=== PATIENT | male | born 1975 | race Caucasian/White ===

== ENCOUNTER 2020-04-05 07:27 | Outpatient (REF) | payer OTHER, SELFPAY | END 2020-04-05 07:28 | disposition home or self-care (01) | LOC: HO.LAB 07:27 | PROVIDERS: Visit Provider Internal Medicine | DX: Z20.822 Contact with and (suspected) exposure to COVID-19 (principal) | CPT/HCPCS: 36415; C9803; U0003; U0005 ==

== ENCOUNTER 2020-11-03 06:54 | Outpatient (REF) | payer OTHER, SELFPAY ==
[2020-11-03 11:20] LABS: MANUAL DIFF FLAG NO
[2020-11-03 11:36] LABS: Basophils Percent Auto 0.4 % (0-2); Eosinophils Absolute Auto 0.3 X10*3/uL (0.0-0.4); Eosinophils Percent Auto 3.6 % (0-4); Hemoglobin 14.3 g/dl (14.0-18.0); Imm Gran Abs Auto 0.04 X10*3/uL (0.00-0.03); Imm Gran Pct Auto 0.4 % (0.0-0.4); Lymphocytes Absolute Auto 2.5 X10*3/uL (1.2-4.9); Lymphocytes Percent Auto 26.7 % (20-40); Mean Corpuscular HGB Conc 32.5 g/dl (31.0-36.0); Mean Corpuscular Hemoglobin 29.1 pg (27.0-33.0); Mean Corpuscular Volume 89.6 fL (80-98); Mean Platelet Volume 9.8 fL (9.4-12.4); Monocytes Absolute Auto 0.6 X10*3/uL (0.1-1.2); Monocytes Percent Auto 6.8 % (2-11); Neutrophils Absolute Auto 5.8 X10*3/uL (2.0-8.3); Neutrophils Percent Auto 62.1 % (45-73); Platelet Count 334 X10*3/uL (160-400); Red Blood Count 4.91 X10*6/uL (4.60-5.80); Red Cell Distribution Width 12.7 % (11.0-16.0); White Blood Count 9.4 X10*3/uL (4.8-10.8)
[2020-11-03 11:44] LABS: Alanine Aminotransferase 22 U/L (0-40); Alkaline Phosphatase 69 U/L (39-117); Anion Gap 12 (12-20); Aspartate Amino Transferase 12 U/L (5-37); Bilirubin Total 0.4 mg/dL (0.0-1.0); Blood Urea Nitrogen 14 mg/dL (9-16); Calcium 9.3 mg/dL (8.4-10.2); Carbon Dioxide 28 mmol/L (22-29); Chloride 102 mmol/L (96-108); Cholesterol 198 mg/dL; Estimated Glomerular Filt Rate > 60; Glucose Fasting 121 mg/dL (60-99); HDL Cholesterol 39 mg/dL; LDL Cholesterol Calculated 134 mg/dl; Potassium 4.5 mmol/L (3.3-5.1); Sodium 137 mmol/L (135-145); Total Protein 7.2 g/dL (6.5-8.0); Triglycerides 128 mg/dL
== END 2020-11-03 06:55 | disposition home or self-care (01) ==
LOC: HO.HMGCLDS 06:54
PROVIDERS: PCP Internal Medicine; Visit Provider Internal Medicine
DX: Z00.00 Encounter for general adult medical examination without abnormal findings (principal); E11.9 Type 2 diabetes mellitus without complications
CPT/HCPCS: 36415; 80053; 80061; 85025

== ENCOUNTER 2021-11-21 06:26 | Outpatient (REF) | payer OTHER, SELFPAY ==
[2021-11-21 11:17] LABS: MANUAL DIFF FLAG NO
[2021-11-21 11:40] LABS: Hematocrit 45.5 % (42.0-52.0); Mean Corpuscular Hemoglobin 29.4 pg (27.0-33.0); Mean Corpuscular Volume 89.2 fL (80.0-98.0); White Blood Count 9.9 X10*3/uL (4.8-10.8)
[2021-11-21 11:41] LABS: Basophils Absolute Auto 0.1 X10*3/uL (0.0-0.2); Basophils Percent Auto 0.6 % (0-2); Eosinophils Absolute Auto 0.3 X10*3/uL (0.0-0.4); Eosinophils Percent Auto 2.8 % (0-4); Imm Gran Abs Auto 0.04 X10*3/uL (0.00-0.03); Imm Gran Pct Auto 0.4 % (0.0-0.4); Lymphocytes Absolute Auto 3.1 X10*3/uL (1.2-4.9); Lymphocytes Percent Auto 31.1 % (20-40); Mean Platelet Volume 9.6 fL (9.4-12.4); Monocytes Absolute Auto 0.8 X10*3/uL (0.1-1.2); Neutrophils Absolute Auto 5.7 x10*3/uL (2.0-8.3); Neutrophils Percent Auto 57.1 % (45-73); Platelet Count 346 X10*3/uL (160-400); Red Cell Distribution Width 12.9 % (11.0-16.0)
[2021-11-21 12:01] LABS: Alanine Aminotransferase 27 U/L (0-40); Albumin Level 4.1 g/dL (3.5-5.0); Alkaline Phosphatase 75 U/L (39-117); Anion Gap 16 (12-20); Aspartate Amino Transferase 13 U/L (5-37); Bilirubin Total 0.6 mg/dL (0.0-1.0); Blood Urea Nitrogen 18 mg/dL (9-16); Calcium 9.3 mg/dL (8.4-10.2); Carbon Dioxide 26 mmol/L (22-29); Chloride 100 mmol/L (96-108); Cholesterol 206 mg/dL; Estimated Glomerular Filt Rate > 60; Glucose Fasting 111 mg/dL (60-99); HDL Cholesterol 37 mg/dL; LDL Cholesterol Calculated 143 mg/dl; Potassium 4.5 mmol/L (3.3-5.1); Sodium 137 mmol/L (135-145); Total Protein 7.3 g/dL (6.5-8.0); Triglycerides 133 mg/dL
[2021-11-21 12:05] LABS: Thyroid Stimulating Hormone 2.34 uIU/mL (0.32-4.0)
== END 2021-11-21 06:27 | disposition home or self-care (01) ==
LOC: HO.HMGCLDS 06:26
PROVIDERS: PCP Internal Medicine; Visit Provider Internal Medicine
DX: I10 Essential (primary) hypertension (principal); E78.5 Hyperlipidemia, unspecified; E03.9 Hypothyroidism, unspecified; Z13.0 Encounter for screening for diseases of the blood and blood-forming organs and certain disorders involving the immune mechanism
CPT/HCPCS: 36415; 80053; 80061; 84443; 85025

== ENCOUNTER 2022-11-15 07:52 | Outpatient (REF) | payer OTHER, SELFPAY ==
[2022-11-15 11:55] LABS: MANUAL DIFF FLAG NO
[2022-11-15 12:04] LABS: Basophils Absolute Auto 0.1 X10*3/uL (0.0-0.2); Basophils Percent Auto 0.4 % (0-2); Eosinophils Absolute Auto 0.5 X10*3/uL (0.0-0.4); Hematocrit 43.5 % (42.0-52.0); Hemoglobin 14.2 g/dl (14.0-18.0); Imm Gran Abs Auto 0.07 X10*3/uL (0.00-0.03); Imm Gran Pct Auto 0.6 % (0.0-0.4); Lymphocytes Absolute Auto 2.8 X10*3/uL (1.2-4.9); Lymphocytes Percent Auto 25.2 % (20-40); Mean Corpuscular HGB Conc 32.6 g/dl (31.0-36.0); Mean Corpuscular Hemoglobin 29.5 pg (27.0-33.0); Mean Corpuscular Volume 90.2 fL (80.0-98.0); Mean Platelet Volume 9.5 fL (9.4-12.4); Monocytes Absolute Auto 0.7 X10*3/uL (0.1-1.2); Monocytes Percent Auto 6.1 % (2-11); Neutrophils Absolute Auto 7.2 x10*3/uL (2.0-8.3); Neutrophils Percent Auto 63.7 % (45-73); Platelet Count 361 X10*3/uL (160-400); Red Blood Count 4.82 X10*6/uL (4.60-5.80); Red Cell Distribution Width 12.8 % (11.0-16.0); White Blood Count 11.3 X10*3/uL (4.8-10.8)
[2022-11-15 12:29] LABS: Alanine Aminotransferase 21 U/L (0-40); Albumin Level 3.9 g/dL (3.5-5.0); Alkaline Phosphatase 67 U/L (39-117); Anion Gap 11 (12-20); Aspartate Amino Transferase 16 U/L (5-37); Bilirubin Total 0.3 mg/dL (0.0-1.0); Blood Urea Nitrogen 15 mg/dL (9-16); Calcium 9.1 mg/dL (8.4-10.2); Carbon Dioxide 23 mmol/L (22-29); Chloride 106 mmol/L (96-108); Cholesterol 187 mg/dL (<200); Estimated Glomerular Filt Rate > 60; Glucose Fasting 121 mg/dL (60-99); HDL Cholesterol 43 mg/dL (>40); LDL Cholesterol Calculated 120 mg/dL (<100); Potassium 3.9 mmol/L (3.3-5.1); Sodium 136 mmol/L (135-145); Total Protein 7.3 g/dL (6.5-8.0); Triglycerides 121 mg/dL (<150)
[2022-11-15 12:46] LABS: Thyroid Stimulating Hormone 3.08 uIU/mL (0.32-4.0)
== END 2022-11-15 07:53 | disposition home or self-care (01) ==
LOC: HO.HMGCLDS 07:52
PROVIDERS: PCP Internal Medicine; Visit Provider Internal Medicine
DX: E78.5 Hyperlipidemia, unspecified (principal); D64.9 Anemia, unspecified; E03.9 Hypothyroidism, unspecified; N28.9 Disorder of kidney and ureter, unspecified
CPT/HCPCS: 36415; 80053; 80061; 84443; 85025

== ENCOUNTER 2023-01-23 13:57 | Outpatient (AMB) | payer OTHER, SELFPAY ==
--- NOTE | 2023-01-23 14:09 | MHC.PC.OV ---
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 Accompanied by: Self / Same As Patient Allergies No Known Allergies Allergy (Verified 01/23/23 14:09) Medication List - Last Reconciled 01/24/23 by Ace Gomes MD hydrochlorothiazide 25 mg PO QAM lisinopril 40 mg PO DAILY Tobacco use date assessed: 01/23/23 Dental Screening Dental Screen Date: 01/23/23 Did you have a dental visit in the last 12 months?: Yes Did you have a dental problem in the last 6 months where you did not have access to dental care?: No Was dental information given to patient?: Patient has dentist HPI PE HPI Details HTN on Rx; compliant [facility] Medical History Morbid obesity Surgical History History of ankle surgery Family History Mother Alive and well Housing: House Alcohol intake: never Patient Tobacco Use Status: Never used Tobacco e-Cigarette/Vaping Use: Never Used Second Hand Smoke Exposure: No service: No Current occupational status: disabled Cognitive needs: No Hearing needs: No Vision needs: Yes Questionnaire PHQ-9 Over the last 2 weeks, how often have you been bothered by any of the following problems? 1. Little interest or pleasure in doing things: not at all 2. Feeling down, depressed, or hopeless: not at all 3. Trouble falling or staying asleep, or sleeping too much: not at all 4. Feeling tired or having little energy: not at all 5. Poor appetite or overeating: not at all 6. Feeling bad about yourself - or that you are a failure or have let yourself or your family down: not at all 7. Trouble concentrating on things, such as reading the newspaper or watching television: not at all 8. Moving or speaking so slowly that other people could have noticed. Or the opposite - being so fidgety or restless that you have been moving around a lot more than usual: not at all 9. Thoughts that you would be better off or of hurting yourself in some way: not at all Total score: 0 Depression Screening Interpretation: Negative Depression Screening Done: Yes 29332 - PHQ-9 Billing: Yes Source: Developed by Drs. Ashish Jimenez, Ada Hawthorne, Hernando Alexandre and colleagues, with an educational delisa from [employer]. Thrive Questionnaire Date Thrive assessed: 01/23/23 I am a: Patient What is your living situation today?: I have a steady place to live Within the past 12 months, did the food you bought not last and you didn't have the money to get more?: Never true Within the past 12 months, did you worry whether your food would run out before you got money to buy more?: Never true Do you have trouble paying for medicines?: No Do you have trouble getting transportation to medical appointments?: No Do you have trouble paying your heating and electricity bill?: No Do you have trouble taking care of your child, family member or friend?: No Do you have trouble with day-to-day activities such as bathing, preparing meals, shopping, managing finances, etc.?: No Are you currently unemployed and looking for a job?: No Are you interested in more education?: No Please select the resources that you would like help with: None AUDIT C Alcohol Use Questionnaire (AUDIT-C) 1. How often do you have a drink containing alcohol?: Never 3. How often do you have six or more drinks on one occasion?: Never Total Score: 0 Score Reviewed/Action Taken: Yes RADHA-7 AMB Questionnaire RADHA-7 Date RADHA - 7 assessed: 01/23/23 Feeling nervous, anxious, or on edge: 0 = Not at all Not being able to stop or control worryin = Not at all Worrying too much about different things: 0 = Not at all Trouble relaxin = Not at all Being so restless that it is hard to sit still: 0 = Not at all Becoming easily annoyed or irritable: 0 = Not at all Feeling afraid as if something awful might happen: 0 = Not at all Total RADHA-7 score (0-4 normal; 5-9 mild; 10-14 moderate; 15-21 severe): 0 Source: Developed by Drs. Ashish Jimenez, Ada Hawthorne, Hernando Alexandre and colleagues, with an educational delisa from [employer]. RADHA-7 Assessment Billing RADHA-7 Assessment Tool: RADHA-7 Assessment 74489 Review of Systems Const Denies chills, Denies fatigue, Denies headache(s) and Denies weight loss Eyes Denies change in vision, Denies diplopia and Denies eye pain ENT Denies vertigo, Denies dizziness, Denies headache(s) and Denies nasal discharge Card Denies chest pain, Denies rapid heart rate and Denies dyspnea on exertion Resp Denies chest congestion, Denies cough, Denies pain with cough and Denies dyspnea on exertion GI Denies abdominal pain, Denies hematochezia and Denies change in bowel habits Musc Denies myalgias, Denies arthralgias and Denies joint swelling Skin/Breast Denies lesions and Denies unusual bruising Neuro Denies vertigo, Denies dizziness, Denies headache(s) and Denies focal weakness Endo Denies fatigue Physical exam (Primary Care) Vital Signs: Last Vital Signs Pulse 105 H 01/23/23 14:10 BP 170/98 H 01/23/23 14:10 Pulse Ox 99 01/23/23 14:10 Oxygen Delivery Method Room Air 01/23/23 14:10 BMI result Body Mass Index 49.2 morbid obesity BMI Assessment/Plan discussion: High BMI High, discussed plan: lifestyle, weight reduction, dietary and physical activity Tobacco/Smoking Status: Tobacco use Status Tobacco use date assessed 01/23/23 01/23/23 14:14 Patient Tobacco Use Status Never used Tobacco 01/23/23 14:14 e-Cigarette/Vaping Use Never Used 01/23/23 14:14 PHQ-9: PHQ-9 Score PHQ-9: Total score 0 01/23/23 14:14 Depression Screening Interpretation: Negative Thrive Assessment: Date of Thrive Assessment Date Thrive assessed 01/23/23 01/23/23 14:14 Const General: cooperative, healthy appearing and no acute distress Orientation/consciousness: oriented to person, oriented to place and oriented to time HENMT Head: Yes normal to inspection, Yes normocephalic and Yes atraumatic Mouth: Normal oral and palatal mucosa present and tongue normal Throat: Yes posterior oropharynx normal and Yes uvula midline Eyes General: appearance normal, both eyes and all related structures Neck Neck: Yes normal visual inspection, Yes full ROM and Yes no lymphadenopathy Thyroid: Thyroid normal Carotids: normal carotid upstroke Chest Chest palpation & inspection: normal inspection of the chest Resp Effort & Inspection: normal respiratory effort and able to speak in complete sentences Auscultation: clear to auscultation bilaterally Cardio Jugular venous distension: no JVD Palpation: normal PMI Rate: regular rate Rhythm: regular rhythm Heart sounds: S1 normal heart sound present and S2 normal heart sound present GI Inspection: Yes normal to inspection Palpation (GI): Soft to palpation and No hepatosplenomegaly present Auscultation: normal bowel sounds General: Yes no CVA tenderness Back/Spine/Pelvis Back: no CVA tenderness Skin General skin exam: no rashes or lesions noted Neuro General: oriented to person, oriented to place and oriented to time Extrem General: Yes normal to inspection and Yes full ROM Assessment and Plan Assessment & Plan (1) Hypertension: Code(s): I10 - Essential (primary) hypertension Plan: stable; same rx (2) Physical exam: Code(s): Z00.00 - Encounter for general adult medical examination without abnormal findings Plan: labs (3) Morbid obesity: Code(s): E66.01 - Morbid (severe) obesity due to excess calories Plan: as above Medications: New lisinopril 40 mg PO DAILY 90 tabs 3RF Discontinued lisinopril Discontinued Reason: Doctor's Order 20 mg PO DAILY 90 tabs 8RF Coding Level of Care Code Est Pt Prev Care 40-64y(50400) Diagnoses Hypertension I10 Physical exam Z00.00 Morbid obesity E66.01 Additional Codes RADHA-7 Assessment Billing - RADHA-7 Assessment Tool: RADHA-7 Assessment 58728 ([id number])
[2023-01-23 14:10] VITALS: BP 170/98; PULSE 105; O2SAT 99; BMI 49.2
== END 2023-01-23 14:38 | disposition home or self-care (01) ==
PROVIDERS: PCP Internal Medicine; Visit Provider Internal Medicine
DX: Z00.00 Encounter for general adult medical examination without abnormal findings (principal); I10 Essential (primary) hypertension; E66.01 Morbid (severe) obesity due to excess calories; Z68.42 Body mass index [BMI] 45.0-49.9, adult
CPT/HCPCS: 99396

== ENCOUNTER 2023-04-24 06:24 | Outpatient (REF) | payer OTHER, SELFPAY ==
[2023-04-24 11:18] LABS: MANUAL DIFF FLAG NO
[2023-04-24 11:32] LABS: Basophils Absolute Auto 0.1 X10*3/uL (0.0-0.2); Basophils Percent Auto 0.6 % (0-2); Eosinophils Absolute Auto 0.6 X10*3/uL (0.0-0.4); Eosinophils Percent Auto 5.5 % (0-4); Hematocrit 43.3 % (42.0-52.0); Hemoglobin 14.2 g/dl (14.0-18.0); Imm Gran Abs Auto 0.06 X10*3/uL (0.00-0.03); Imm Gran Pct Auto 0.6 % (0.0-0.4); Lymphocytes Absolute Auto 2.2 X10*3/uL (1.2-4.9); Lymphocytes Percent Auto 21.3 % (20-40); Mean Corpuscular HGB Conc 32.8 g/dl (31.0-36.0); Mean Corpuscular Hemoglobin 29.3 pg (27.0-33.0); Mean Corpuscular Volume 89.3 fL (80.0-98.0); Mean Platelet Volume 9.5 fL (9.4-12.4); Monocytes Absolute Auto 0.7 X10*3/uL (0.1-1.2); Monocytes Percent Auto 6.9 % (2-11); Neutrophils Absolute Auto 6.7 x10*3/uL (2.0-8.3); Neutrophils Percent Auto 65.1 % (45-73); Platelet Count 352 X10*3/uL (160-400); Red Blood Count 4.85 X10*6/uL (4.60-5.80); Red Cell Distribution Width 13.2 % (11.0-16.0); White Blood Count 10.3 X10*3/uL (4.8-10.8)
[2023-04-24 11:56] LABS: Alanine Aminotransferase 22 U/L (0-40); Albumin Level 3.8 g/dL (3.5-5.0); Alkaline Phosphatase 71 U/L (39-117); Anion Gap 15 (12-20); Aspartate Amino Transferase 12 U/L (5-37); Bilirubin Total 0.3 mg/dL (0.0-1.0); Blood Urea Nitrogen 20 mg/dL (9-16); Calcium 8.9 mg/dL (8.4-10.2); Carbon Dioxide 23 mmol/L (22-29); Chloride 103 mmol/L (96-108); Cholesterol 200 mg/dL (<200); Estimated Glomerular Filt Rate > 60; Glucose Fasting 136 mg/dL (60-99); HDL Cholesterol 42 mg/dL (>40); LDL Cholesterol Calculated 126 mg/dL (<100); Potassium 4.4 mmol/L (3.3-5.1); Sodium 137 mmol/L (135-145); Total Protein 7.4 g/dL (6.5-8.0); Triglycerides 164 mg/dL (<150)
== END 2023-04-24 06:25 | disposition home or self-care (01) ==
LOC: HO.HMGCLDS 06:24
PROVIDERS: PCP Internal Medicine; Visit Provider Internal Medicine
DX: E78.5 Hyperlipidemia, unspecified (principal); D64.9 Anemia, unspecified; N28.9 Disorder of kidney and ureter, unspecified
CPT/HCPCS: 36415; 80053; 80061; 85025

== ENCOUNTER 2023-04-25 09:59 | Outpatient (AMB) | payer OTHER, SELFPAY ==
[2023-04-25 10:01] VITALS: BP 140/84; PULSE 96; O2SAT 100; BMI 50.1
--- NOTE | 2023-04-25 10:01 | A.OFFPC_ITS ---
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 Payroll And Benefits Manager: Not Required per policy Accompanied by: Self / Same As Patient Allergies No Known Allergies Allergy (Verified 04/25/23 10:01) Medication List - Last Reconciled 04/25/23 by Ace Gomes MD hydrochlorothiazide 25 mg PO QAM lisinopril 40 mg PO DAILY Tobacco use date assessed: 04/25/23 Dental Screening Dental Screen Date: 04/25/23 Did you have a dental visit in the last 12 months?: Yes Did you have a dental problem in the last 6 months where you did not have access to dental care?: No Was dental information given to patient?: Patient has dentist HPI 3 month f/u HPI Details HTN on rx; doing well; compliant [facility] Medical History Morbid obesity Surgical History History of ankle surgery Family History Mother Alive and well Social History Housing: House Alcohol intake: never Patient Tobacco Use Status: Never used Tobacco e-Cigarette/Vaping Use: Never Used Second Hand Smoke Exposure: No service: No Current occupational status: disabled Cognitive needs: No Hearing needs: No Vision needs: Yes Questionnaire PHQ-9 Over the last 2 weeks, how often have you been bothered by any of the following problems? 1. Little interest or pleasure in doing things: not at all 2. Feeling down, depressed, or hopeless: not at all 3. Trouble falling or staying asleep, or sleeping too much: not at all 4. Feeling tired or having little energy: not at all 5. Poor appetite or overeating: not at all 6. Feeling bad about yourself - or that you are a failure or have let yourself or your family down: not at all 7. Trouble concentrating on things, such as reading the newspaper or watching television: not at all 8. Moving or speaking so slowly that other people could have noticed. Or the opposite - being so fidgety or restless that you have been moving around a lot more than usual: not at all 9. Thoughts that you would be better off or of hurting yourself in some way: not at all Total score: 0 Depression Screening Interpretation: Negative Depression Screening Done: Yes 39023 - PHQ-9 Billing: Yes Source: Developed by Drs. Ashish Jimenez, Ada Hawthorne, Hernando Alexandre and colleagues, with an educational delisa from [employer]. Thrive Questionnaire Date Thrive assessed: 04/25/23 I am a: Patient What is your living situation today?: I have a steady place to live Within the past 12 months, did the food you bought not last and you didn't have the money to get more?: Never true Within the past 12 months, did you worry whether your food would run out before you got money to buy more?: Never true Do you have trouble paying for medicines?: No Do you have trouble getting transportation to medical appointments?: No Do you have trouble paying your heating and electricity bill?: No Do you have trouble taking care of your child, family member or friend?: No Do you have trouble with day-to-day activities such as bathing, preparing meals, shopping, managing finances, etc.?: No Are you currently unemployed and looking for a job?: No Are you interested in more education?: No Please select the resources that you would like help with: None THRIVE Score: 0 AUDIT C Alcohol Use Questionnaire (AUDIT-C) 1. How often do you have a drink containing alcohol?: Never 3. How often do you have six or more drinks on one occasion?: Never Total Score: 0 Score Reviewed/Action Taken: Yes RADHA-7 AMB Questionnaire RADHA-7 Date RADHA - 7 assessed: 04/25/23 Feeling nervous, anxious, or on edge: 0 = Not at all Not being able to stop or control worryin = Not at all Worrying too much about different things: 0 = Not at all Trouble relaxin = Not at all Being so restless that it is hard to sit still: 0 = Not at all Becoming easily annoyed or irritable: 0 = Not at all Feeling afraid as if something awful might happen: 0 = Not at all Total RADHA-7 score (0-4 normal; 5-9 mild; 10-14 moderate; 15-21 severe): 0 Source: Developed by Drs. Ashish Jimenez, Ada Hawthorne, Hernando Alexandre and colleagues, with an educational delisa from [employer]. RADHA-7 Assessment Billing RADHA-7 Assessment Tool: RADHA-7 Assessment 48232 Review of Systems Const Denies chills, Denies headache(s) and Denies weight loss ENT Denies headache(s) Card Denies chest pain, Denies syncope, Denies irregular heart rhythm and Denies dyspnea Resp Denies chest congestion, Denies cough and Denies dyspnea GI Denies abdominal pain, Denies change in stool character, Denies nausea and Denies vomiting Musc Denies deformity and Denies joint swelling Neuro Denies syncope and Denies headache(s) Physical exam (Primary Care) Vital Signs: Last Vital Signs Pulse 96 04/25/23 10:01 BP 140/84 H 04/25/23 10:01 Pulse Ox 100 04/25/23 10:01 Oxygen Delivery Method Room Air 04/25/23 10:01 BMI result Body Mass Index 50.1 Tobacco/Smoking Status: Tobacco use Status Tobacco use date assessed 04/25/23 04/25/23 10:02 Patient Tobacco Use Status Never used Tobacco 04/25/23 10:02 e-Cigarette/Vaping Use Never Used 04/25/23 10:02 PHQ-9: PHQ-9 Score PHQ-9: Total score 0 04/25/23 10:02 Depression Screening Interpretation: Negative Thrive Assessment: Date of Thrive Assessment Date Thrive assessed 04/25/23 04/25/23 10:02 Const General: cooperative, comfortable, no acute distress and alert Neck Neck: Yes no lymphadenopathy Thyroid: Thyroid normal Resp Effort & Inspection: normal respiratory effort Auscultation: clear to auscultation bilaterally Percussion: percussion normal Cardio Jugular venous distension: no JVD Palpation: normal PMI Rate: regular rate Rhythm: regular rhythm Heart sounds: S1 normal heart sound present and S2 normal heart sound present GI Inspection: Yes normal to inspection Palpation (GI): No hepatosplenomegaly present Skin General skin exam: no rashes or lesions noted Extrem General: Yes no clubbing, cyanosis or edema Assessment and Plan Assessment & Plan (1) Hypertension: Code(s): I10 - Essential (primary) hypertension Plan: stable; same rx Coding Level of Care Code Est Pt Level 3 (51884) Diagnoses Hypertension I10 Additional Codes RADHA-7 Assessment Billing - RADHA-7 Assessment Tool: RADHA-7 Assessment 16044 ([id number])
== END 2023-04-25 10:19 | disposition home or self-care (01) ==
PROVIDERS: PCP Internal Medicine; Visit Provider Internal Medicine
DX: I10 Essential (primary) hypertension (principal)
CPT/HCPCS: 99213

== ENCOUNTER 2023-08-03 06:22 | Outpatient (REF) | payer OTHER, SELFPAY ==
[2023-08-03 10:15] LABS: MANUAL DIFF FLAG NO
[2023-08-03 10:34] LABS: Basophils Absolute Auto 0.1 X10*3/uL (0.0-0.2); Basophils Percent Auto 0.5 % (0-2); Eosinophils Absolute Auto 0.9 X10*3/uL (0.0-0.4); Eosinophils Percent Auto 8.1 % (0-4); Hematocrit 38.3 % (42.0-52.0); Hemoglobin 12.8 g/dl (14.0-18.0); Imm Gran Abs Auto 0.05 X10*3/uL (0.00-0.03); Imm Gran Pct Auto 0.5 % (0.0-0.4); Lymphocytes Absolute Auto 2.4 X10*3/uL (1.2-4.9); Lymphocytes Percent Auto 21.7 % (20-40); Mean Corpuscular HGB Conc 33.4 g/dl (31.0-36.0); Mean Corpuscular Hemoglobin 30.3 pg (27.0-33.0); Mean Corpuscular Volume 90.8 fL (80.0-98.0); Mean Platelet Volume 9.8 fL (9.4-12.4); Monocytes Absolute Auto 0.7 X10*3/uL (0.1-1.2); Monocytes Percent Auto 6.4 % (2-11); Neutrophils Absolute Auto 6.9 x10*3/uL (2.0-8.3); Neutrophils Percent Auto 62.8 % (45-73); Platelet Count 369 X10*3/uL (160-400); Red Blood Count 4.22 X10*6/uL (4.60-5.80); Red Cell Distribution Width 12.5 % (11.0-16.0)
[2023-08-03 10:52] LABS: Alanine Aminotransferase 24 U/L (0-40); Albumin Level 3.9 g/dL (3.5-5.0); Alkaline Phosphatase 68 U/L (39-117); Anion Gap 13 (12-20); Aspartate Amino Transferase 13 U/L (5-37); Bilirubin Total 0.3 mg/dL (0.0-1.0); Blood Urea Nitrogen 27 mg/dL (9-16); Calcium 9.6 mg/dL (8.4-10.2); Carbon Dioxide 21 mmol/L (22-29); Chloride 106 mmol/L (96-108); Cholesterol 199 mg/dL (<200); Estimated Glomerular Filt Rate > 60; Glucose Fasting 143 mg/dL (60-99); HDL Cholesterol 33 mg/dL (>40); LDL Cholesterol Calculated 128 mg/dL (<100); Potassium 4.6 mmol/L (3.3-5.1); Sodium 135 mmol/L (135-145); Total Protein 7.5 g/dL (6.5-8.0); Triglycerides 194 mg/dL (<150)
[2023-08-03 11:10] LABS: Thyroid Stimulating Hormone 2.12 uIU/mL (0.32-4.0)
== END 2023-08-03 06:23 | disposition home or self-care (01) ==
LOC: HO.HMGCLDS 06:22
PROVIDERS: PCP Internal Medicine; Visit Provider Internal Medicine
DX: Z13.0 Encounter for screening for diseases of the blood and blood-forming organs and certain disorders involving the immune mechanism (principal); Z13.29 Encounter for screening for other suspected endocrine disorder; Z13.220 Encounter for screening for lipoid disorders; Z13.9 Encounter for screening, unspecified
CPT/HCPCS: 36415; 80053; 80061; 84443; 85025

== ENCOUNTER 2023-08-24 10:36 | Outpatient (AMB) | payer OTHER, SELFPAY ==
[2023-08-24 10:39] VITALS: BP 140/72; PULSE 97; O2SAT 97; BMI 50.1
--- NOTE | 2023-08-24 10:39 | MHC.PC.OV ---
Vital Signs 08/24/23 10:39 Height 5 ft 3 in Weight 283 lb 0.4 oz BMI 50.1 BP 140/72 H Blood Pressure Location Lt brachial Position Sitting Pulse 97 Pulse Source Pulse Oximeter Pulse Oximetry (%) 97 Oxygen Delivery Method Room Air Intake Visit Reasons: 3mnth f/u med Allergies No Known Allergies Allergy (Verified 08/24/23 10:40) Tobacco use date assessed: 08/24/23 Dental Screening Dental Screen Date: 04/25/23 HPI 3mnth f/u med HPI Details HTN on Rx; doing well; compliant [facility] Medical History Morbid obesity Surgical History History of ankle surgery Family History Mother Alive and well Social History Housing: House Alcohol intake: never Patient Tobacco Use Status: Never used Tobacco e-Cigarette/Vaping Use: Never Used Second Hand Smoke Exposure: No service: No Current occupational status: disabled Cognitive needs: No Hearing needs: No Vision needs: Yes Questionnaire PHQ-9 Over the last 2 weeks, how often have you been bothered by any of the following problems? 1. Little interest or pleasure in doing things: not at all 2. Feeling down, depressed, or hopeless: not at all 3. Trouble falling or staying asleep, or sleeping too much: not at all 4. Feeling tired or having little energy: not at all 5. Poor appetite or overeating: not at all 6. Feeling bad about yourself - or that you are a failure or have let yourself or your family down: not at all 7. Trouble concentrating on things, such as reading the newspaper or watching television: not at all 8. Moving or speaking so slowly that other people could have noticed. Or the opposite - being so fidgety or restless that you have been moving around a lot more than usual: not at all 9. Thoughts that you would be better off or of hurting yourself in some way: not at all Total score: 0 Depression Screening Interpretation: Negative Depression Screening Done: Yes 77942 - PHQ-9 Billing: Yes Source: Developed by Ada Pollard Kurt Kroenke and colleagues, with an educational delisa from [employer]. Thrive Questionnaire Date Thrive assessed: 04/25/23 I am a: Patient What is your living situation today?: I have a steady place to live Within the past 12 months, did the food you bought not last and you didn't have the money to get more?: Never true Within the past 12 months, did you worry whether your food would run out before you got money to buy more?: Never true Do you have trouble paying for medicines?: No Do you have trouble getting transportation to medical appointments?: No Do you have trouble paying your heating and electricity bill?: No Do you have trouble taking care of your child, family member or friend?: No Do you have trouble with day-to-day activities such as bathing, preparing meals, shopping, managing finances, etc.?: No Are you currently unemployed and looking for a job?: No Are you interested in more education?: No Please select the resources that you would like help with: None THRIVE Score: 0 AUDIT C Alcohol Use Questionnaire (AUDIT-C) 1. How often do you have a drink containing alcohol?: Never 3. How often do you have six or more drinks on one occasion?: Never Total Score: 0 Score Reviewed/Action Taken: Yes RADHA-7 AMB Questionnaire RADHA-7 Date RADHA - 7 assessed: 04/25/23 Feeling nervous, anxious, or on edge: 0 = Not at all Not being able to stop or control worryin = Not at all Worrying too much about different things: 0 = Not at all Trouble relaxin = Not at all Being so restless that it is hard to sit still: 0 = Not at all Becoming easily annoyed or irritable: 0 = Not at all Feeling afraid as if something awful might happen: 0 = Not at all Total RADHA-7 score (0-4 normal; 5-9 mild; 10-14 moderate; 15-21 severe): 0 Source: Developed by Ada Pollard Kurt Kroenke and colleagues, with an educational delisa from [employer]. RADHA-7 Assessment Billing RADHA-7 Assessment Tool: RADHA-7 Assessment 71909 Review of Systems Const Denies chills, Denies headache(s) and Denies weight loss ENT Denies headache(s) Card Denies chest pain, Denies syncope, Denies irregular heart rhythm and Denies dyspnea Resp Denies chest congestion, Denies cough and Denies dyspnea GI Denies abdominal pain, Denies change in stool character, Denies nausea and Denies vomiting Musc Denies deformity and Denies joint swelling Neuro Denies syncope and Denies headache(s) Physical exam (Primary Care) Vital Signs: Last Vital Signs Pulse 97 08/24/23 10:39 BP 140/72 H 08/24/23 10:39 Pulse Ox 97 08/24/23 10:39 Oxygen Delivery Method Room Air 08/24/23 10:39 BMI result Body Mass Index 50.1 Tobacco/Smoking Status: Tobacco use Status Tobacco use date assessed 08/24/23 08/24/23 10:40 Patient Tobacco Use Status Never used Tobacco 08/24/23 10:40 e-Cigarette/Vaping Use Never Used 08/24/23 10:40 PHQ-9: PHQ-9 Score PHQ-9: Total score 0 08/24/23 10:48 Depression Screening Interpretation: Negative Thrive Assessment: Date of Thrive Assessment Date Thrive assessed 04/25/23 08/24/23 10:40 Const General: cooperative, comfortable, no acute distress and alert Neck Neck: Yes no lymphadenopathy Thyroid: Thyroid normal Resp Effort & Inspection: normal respiratory effort Auscultation: clear to auscultation bilaterally Percussion: percussion normal Cardio Jugular venous distension: no JVD Palpation: normal PMI Rate: regular rate Rhythm: regular rhythm Heart sounds: S1 normal heart sound present and S2 normal heart sound present GI Inspection: Yes normal to inspection Palpation (GI): No hepatosplenomegaly present Skin General skin exam: no rashes or lesions noted Extrem General: Yes no clubbing, cyanosis or edema Assessment and Plan Assessment & Plan (1) Hypertension: Code(s): I10 - Essential (primary) hypertension Plan: stable; same rx Coding Level of Care Code Est Pt Level 3 (04916) Diagnoses Hypertension I10 Additional Codes RADHA-7 Assessment Billing - RADHA-7 Assessment Tool: RADHA-7 Assessment 19394 ([id number])
== END 2023-08-24 10:54 | disposition home or self-care (01) ==
PROVIDERS: PCP Internal Medicine; Visit Provider Internal Medicine
DX: I10 Essential (primary) hypertension (principal)
CPT/HCPCS: 99213

== ENCOUNTER 2023-11-23 08:55 | Outpatient (REF) | payer OTHER, SELFPAY ==
[2023-11-23 10:22] LABS: Cholesterol 197 mg/dL (<200); HDL Cholesterol 40 mg/dL (>40); LDL Cholesterol Calculated 133 mg/dL (<100); Triglycerides 124 mg/dL (<150)
== END 2023-11-23 08:56 | disposition home or self-care (01) ==
LOC: HO.HMGCLDS 08:55
PROVIDERS: PCP Internal Medicine; Visit Provider Internal Medicine
DX: Z13.220 Encounter for screening for lipoid disorders (principal)
CPT/HCPCS: 36415; 80061

== ENCOUNTER 2023-11-28 10:48 | Outpatient (AMB) | payer OTHER, SELFPAY ==
[2023-11-28 10:57] VITALS: BP 142/84; PULSE 103; O2SAT 95; BMI 50.8
--- NOTE | 2023-11-28 10:57 | MHC.PC.OV ---
Vital Signs 11/28/23 10:57 Height 5 ft 3 in Weight 287 lb BMI 50.8 BP 142/84 H Blood Pressure Location Lt brachial Position Sitting Pulse 103 H Pulse Source Pulse Oximeter Pulse Oximetry (%) 95 Oxygen Delivery Method Room Air Intake Visit Reasons: 3 Month F/U, Med Check Allergies No Known Allergies Allergy (Verified 11/28/23 10:58) Medication List - Last Reconciled 11/28/23 by Ace Gomes MD celecoxib 200 mg PO DAILY hydrochlorothiazide 25 mg PO QAM lisinopril 40 mg PO DAILY Tobacco use date assessed: 08/24/23 Dental Screening Dental Screen Date: 04/25/23 HPI 3 Month F/U, Med Check HPI Details HTN on Rx; compliant; doing well [facility] Medical History Morbid obesity Surgical History History of ankle surgery Family History Mother Alive and well Social History Housing: House Alcohol intake: never Patient Tobacco Use Status: Never used Tobacco Tobacco use type: Cigarette e-Cigarette/Vaping Use: Never Used Second Hand Smoke Exposure: No service: No Current occupational status: disabled Cognitive needs: No Hearing needs: No Vision needs: Yes Questionnaire PHQ-9 Over the last 2 weeks, how often have you been bothered by any of the following problems? 1. Little interest or pleasure in doing things: not at all 2. Feeling down, depressed, or hopeless: not at all 3. Trouble falling or staying asleep, or sleeping too much: not at all 4. Feeling tired or having little energy: not at all 5. Poor appetite or overeating: not at all 6. Feeling bad about yourself - or that you are a failure or have let yourself or your family down: not at all 7. Trouble concentrating on things, such as reading the newspaper or watching television: not at all 8. Moving or speaking so slowly that other people could have noticed. Or the opposite - being so fidgety or restless that you have been moving around a lot more than usual: not at all 9. Thoughts that you would be better off or of hurting yourself in some way: not at all Total score: 0 Depression Screening Interpretation: Negative Depression Screening Done: Yes 05859 - PHQ-9 Billing: Yes Source: Developed by Drs. Ashish Jimenez, Ada Hawthorne, Hernando Alexandre and colleagues, with an educational delisa from [employer]. Thrive Questionnaire Date Thrive assessed: 04/25/23 Are you currently unemployed and looking for a job?: No AUDIT C Alcohol Use Questionnaire (AUDIT-C) 1. How often do you have a drink containing alcohol?: Never 3. How often do you have six or more drinks on one occasion?: Never Total Score: 0 Score Reviewed/Action Taken: Yes RADHA-7 AMB Questionnaire RADHA-7 Date RADHA - 7 assessed: 04/25/23 Source: Developed by Drs. Ashish Jimenez, Ada Hawthorne, Hernando Alexandre and colleagues, with an educational delisa from [employer]. Review of Systems Const Denies chills, Denies headache(s) and Denies weight loss ENT Denies headache(s) Card Denies chest pain, Denies syncope, Denies irregular heart rhythm and Denies dyspnea Resp Denies chest congestion, Denies cough and Denies dyspnea GI Denies abdominal pain, Denies change in stool character, Denies nausea and Denies vomiting Musc Denies deformity and Denies joint swelling Neuro Denies syncope and Denies headache(s) Physical exam (Primary Care) Vital Signs: Last Vital Signs Pulse 103 H 11/28/23 10:57 BP 142/84 H 11/28/23 10:57 Pulse Ox 95 11/28/23 10:57 Oxygen Delivery Method Room Air 11/28/23 10:57 BMI result Body Mass Index 50.8 Tobacco/Smoking Status: Tobacco use Status Tobacco use date assessed 08/24/23 11/28/23 11:02 Patient Tobacco Use Status Never used Tobacco 11/28/23 11:02 Tobacco use type Cigarette 11/28/23 11:02 e-Cigarette/Vaping Use Never Used 11/28/23 11:02 PHQ-9: PHQ-9 Score PHQ-9: Total score 0 11/28/23 11:42 Depression Screening Interpretation: Negative Thrive Assessment: Date of Thrive Assessment Date Thrive assessed 04/25/23 11/28/23 11:02 Const General: cooperative, comfortable, no acute distress and alert Neck Neck: Yes no lymphadenopathy Thyroid: Thyroid normal Resp Effort & Inspection: normal respiratory effort Auscultation: clear to auscultation bilaterally Percussion: percussion normal Cardio Jugular venous distension: no JVD Palpation: normal PMI Rate: regular rate Rhythm: regular rhythm Heart sounds: S1 normal heart sound present and S2 normal heart sound present GI Inspection: Yes normal to inspection Palpation (GI): No hepatosplenomegaly present Skin General skin exam: no rashes or lesions noted Extrem General: Yes no clubbing, cyanosis or edema Assessment and Plan Assessment & Plan (1) Hypertension: Code(s): I10 - Essential (primary) hypertension Plan: stable; same rx Medications: Refilled hydrochlorothiazide 25 mg PO QAM 90 tabs 1RF Coding Level of Care Code Est Pt Level 3 (95874) Diagnoses Hypertension I10
== END 2023-11-28 11:10 | disposition home or self-care (01) ==
PROVIDERS: PCP Internal Medicine; Visit Provider Internal Medicine
DX: I10 Essential (primary) hypertension (principal)

== ENCOUNTER → 2023-11-28 10:48 | Outpatient (BNVA) | payer OTHER, SELFPAY | PROVIDERS: PCP Internal Medicine; Visit Provider Internal Medicine | DX: I10 Essential (primary) hypertension (principal); Z79.899 Other long term (current) drug therapy | CPT/HCPCS: 99212 ==

== ENCOUNTER 2024-04-25 09:32 | Outpatient (AMB) | payer OTHER, SELFPAY ==
--- NOTE | 2024-04-25 09:43 | MHC.PC.OV ---
Vital Signs 04/25/24 09:45 Height 5 ft 3 in Weight 292 lb 2 oz BMI 51.7 BP 122/76 Blood Pressure Location Lt brachial Position Sitting Pulse 101 H Pulse Source Pulse Oximeter Temp 97.1 F Temp Source Temporal Artery Scan Pulse Oximetry (%) 97 Oxygen Delivery Method Room Air Intake Visit Reasons: 3 months f/u Intake Note: Patient is here to follow up on HTN. Geospatial Technician Required: No Sales And Marketing Professional: Not Required per policy Accompanied by: Self / Same As Patient Allergies No Known Allergies Allergy (Verified 04/25/24 09:45) Tobacco use date assessed: 04/25/24 Dental Screening Dental Screen Date: 04/25/24 Did you have a dental visit in the last 12 months?: Yes Did you have a dental problem in the last 6 months where you did not have access to dental care?: No Was dental information given to patient?: Patient has dentist HPI 3 months f/u HPI Details HTN on rx; doing well and compliant [facility] Medical History Morbid obesity Surgical History History of ankle surgery Family History Mother Alive and well Social History Housing: House Alcohol intake: never Patient Tobacco Use Status: Never used Tobacco Tobacco use type: Cigarette e-Cigarette/Vaping Use: Never Used Second Hand Smoke Exposure: No service: No Current occupational status: disabled Cognitive needs: No Hearing needs: No Vision needs: Yes (Glasses) Questionnaire PHQ-9 Over the last 2 weeks, how often have you been bothered by any of the following problems? 1. Little interest or pleasure in doing things: not at all 2. Feeling down, depressed, or hopeless: not at all 3. Trouble falling or staying asleep, or sleeping too much: not at all 4. Feeling tired or having little energy: not at all 5. Poor appetite or overeating: not at all 6. Feeling bad about yourself - or that you are a failure or have let yourself or your family down: not at all 7. Trouble concentrating on things, such as reading the newspaper or watching television: not at all 8. Moving or speaking so slowly that other people could have noticed. Or the opposite - being so fidgety or restless that you have been moving around a lot more than usual: not at all 9. Thoughts that you would be better off or of hurting yourself in some way: not at all Total score: 0 Depression Screening Interpretation: Negative Depression Screening Done: Yes Source: Developed by Drs. Ashish Jimenez, Ada Hawthorne, Hernando Alexandre and colleagues, with an educational delisa from [employer]. Thrive Questionnaire Date Thrive assessed: 04/25/24 I am a: Patient What is your living situation today?: I have a steady place to live Within the past 12 months, did the food you bought not last and you didn't have the money to get more?: Never true Within the past 12 months, did you worry whether your food would run out before you got money to buy more?: Never true Do you have trouble paying for medicines?: No Do you have trouble getting transportation to medical appointments?: No Do you have trouble paying your heating and electricity bill?: No Do you have trouble taking care of your child, family member or friend?: No Do you have trouble with day-to-day activities such as bathing, preparing meals, shopping, managing finances, etc.?: No Are you currently unemployed and looking for a job?: No Are you interested in more education?: No Please select the resources that you would like help with: None Currently or been in a relationship where the following occur: No concerns reported THRIVE Score: 0 AUDIT C Alcohol Use Questionnaire (AUDIT-C) 1. How often do you have a drink containing alcohol?: Never Total Score: 0 RADHA-7 AMB Questionnaire RADHA-7 Date RADHA - 7 assessed: 04/25/24 Feeling nervous, anxious, or on edge: 0 = Not at all Not being able to stop or control worryin = Not at all Worrying too much about different things: 0 = Not at all Trouble relaxin = Not at all Being so restless that it is hard to sit still: 0 = Not at all Becoming easily annoyed or irritable: 0 = Not at all Feeling afraid as if something awful might happen: 0 = Not at all Total RADHA-7 score (0-4 normal; 5-9 mild; 10-14 moderate; 15-21 severe): 0 Source: Developed by Drs. Ashish Jimenez, Ada Hawthorne, Hernando Alexandre and colleagues, with an educational delisa from [employer]. Review of Systems Const Denies chills, Denies headache(s) and Denies weight loss ENT Denies headache(s) Card Denies chest pain, Denies syncope, Denies irregular heart rhythm and Denies dyspnea Resp Denies chest congestion, Denies cough and Denies dyspnea GI Denies abdominal pain, Denies change in stool character, Denies nausea and Denies vomiting Musc Denies deformity and Denies joint swelling Neuro Denies syncope and Denies headache(s) Physical exam (Primary Care) Vital Signs: Last Vital Signs Temp 97.1 F 04/25/24 09:45 Pulse 101 H 04/25/24 09:45 BP 122/76 04/25/24 09:45 Pulse Ox 97 04/25/24 09:45 Oxygen Delivery Method Room Air 04/25/24 09:45 BMI result Body Mass Index 51.7 Tobacco/Smoking Status: Tobacco use Status Tobacco use date assessed 04/25/24 04/25/24 09:47 Patient Tobacco Use Status Never used Tobacco 04/25/24 09:47 Tobacco use type Cigarette 04/25/24 09:47 e-Cigarette/Vaping Use Never Used 04/25/24 09:47 PHQ-9: PHQ-9 Score PHQ-9: Total score 0 04/25/24 09:47 Depression Screening Interpretation: Negative Thrive Assessment: Date of Thrive Assessment Date Thrive assessed 04/25/24 04/25/24 09:47 Currently or been in a relationship where the following occur: No concerns reported Const General: cooperative, comfortable, no acute distress and alert Neck Neck: Yes no lymphadenopathy Thyroid: Thyroid normal Resp Effort & Inspection: normal respiratory effort Auscultation: clear to auscultation bilaterally Percussion: percussion normal Cardio Jugular venous distension: no JVD Palpation: normal PMI Rate: regular rate Rhythm: regular rhythm Heart sounds: S1 normal heart sound present and S2 normal heart sound present GI Inspection: Yes normal to inspection Palpation (GI): No hepatosplenomegaly present Skin General skin exam: no rashes or lesions noted Extrem General: Yes no clubbing, cyanosis or edema Coding Level of Care Code Est Pt Level 3 (85790) Diagnoses Hypertension I10 Assessment & Plan Assessment & Plan (1) Hypertension: Code(s): I10 - Essential (primary) hypertension Category: Medical Plan: stable; same rx
[2024-04-25 09:45] VITALS: BP 122/76; PULSE 101; TEMP 36.2; O2SAT 97; BMI 51.7
== END 2024-04-25 09:56 | disposition home or self-care (01) ==
PROVIDERS: PCP Internal Medicine; Visit Provider Internal Medicine
DX: I10 Essential (primary) hypertension (principal)

== ENCOUNTER → 2024-04-25 09:32 | Outpatient (BNVA) | payer OTHER, SELFPAY | PROVIDERS: PCP Internal Medicine; Visit Provider Internal Medicine | DX: I10 Essential (primary) hypertension (principal) | CPT/HCPCS: 99212 ==

== ENCOUNTER 2024-07-14 13:38 | Outpatient (AMB) | payer OTHER, SELFPAY ==
--- NOTE | 2024-07-14 13:57 | A.OFFPC_ITS ---
Vital Signs 07/14/24 13:58 Height 5 ft 3 in Weight 285 lb 2 oz BMI 50.5 BP 132/74 Blood Pressure Location Lt brachial Position Sitting Pulse 86 Pulse Source Pulse Oximeter Temp 97.3 F Temp Source Temporal Artery Scan Pulse Oximetry (%) 96 Oxygen Delivery Method Room Air Intake Visit Reasons: GIAN Dr Gomes/ 3 month f/u Intake Note: Patient is here today for GIAN Dr Gomes and 3m f/u Screw Driver Operator Required: No Hand Bender: Present Accompanied by: Mother Allergies No Known Allergies Allergy (Verified 07/14/24 14:12) Medication List - Last Reconciled 07/14/24 by Sandra Walsh PA-C celecoxib 200 mg PO DAILY hydrochlorothiazide 25 mg PO QAM lisinopril 40 mg PO DAILY Tobacco use date assessed: 07/14/24 Dental Screening Dental Screen Date: 04/25/[address] Gomes/ 3 month f/u HPI Details 49-year-old male with past medical histo ry of hypertension and morbid obesity last seen 04/[address] Gomes coming in for transfer of care. Presenting with a follow-up for diabetes mellitus, essential hypertension, and hypercholesterolemia management. Diabetes mellitus was identified based on a fasting glucose level of 136 mg/dL from last April, unawareness of diagnosis until today. Essential hypertension is treated with lisinopril. Cholesterol levels, slightly above ideal diabetic range, were previously noted. Patient has no acute concerns today. [facility] Medical History (Updated 07/14/24 @ 14:42 by Sandra Walsh PA-C) Morbid obesity Surgical History (Updated 07/14/24 @ 14:32 by Sandra Walsh PA-C) History of ankle surgery Family History (Updated 07/14/24 @ 14:34 by Sandra Walsh PA-C) Mother Alive and well Endometrial cancer Father Coronary artery disease Social History Housing: House Alcohol intake: never Patient Tobacco Use Status: Never used Tobacco Tobacco use type: Cigarette e-Cigarette/Vaping Use: Never Used Second Hand Smoke Exposure: No service: No Current occupational status: disabled Cognitive needs: No Hearing needs: No Vision needs: Yes (Glasses) Questionnaire PHQ-9 Over the last 2 weeks, how often have you been bothered by any of the following problems? 1. Little interest or pleasure in doing things: not at all 2. Feeling down, depressed, or hopeless: not at all 3. Trouble falling or staying asleep, or sleeping too much: not at all 4. Feeling tired or having little energy: not at all 5. Poor appetite or overeating: not at all 6. Feeling bad about yourself - or that you are a failure or have let yourself or your family down: not at all 7. Trouble concentrating on things, such as reading the newspaper or watching television: not at all 8. Moving or speaking so slowly that other people could have noticed. Or the opposite - being so fidgety or restless that you have been moving around a lot more than usual: not at all 9. Thoughts that you would be better off or of hurting yourself in some way: not at all Total score: 0 Depression Screening Interpretation: Negative Depression Screening Done: Yes Source: Developed by Drs. Ashish Jimenez, Ada Hawthorne, Hernando Alexandre and colleagues, with an educational delisa from [employer]. Thrive Questionnaire Date Thrive assessed: 04/25/24 I am a: Patient What is your living situation today?: I have a steady place to live Within the past 12 months, did the food you bought not last and you didn't have the money to get more?: Never true Within the past 12 months, did you worry whether your food would run out before you got money to buy more?: Never true Do you have trouble paying for medicines?: No Do you have trouble getting transportation to medical appointments?: No Do you have trouble paying your heating and electricity bill?: No Do you have trouble taking care of your child, family member or friend?: No Do you have trouble with day-to-day activities such as bathing, preparing meals, shopping, managing finances, etc.?: No Are you currently unemployed and looking for a job?: No Are you interested in more education?: No Please select the resources that you would like help with: None Currently or been in a relationship where the following occur: I choose not to answer THRIVE Score: 0 AUDIT C Alcohol Use Questionnaire (AUDIT-C) 1. How often do you have a drink containing alcohol?: Never Total Score: 0 ARDHA-7 AMB Questionnaire RADHA-7 Date RADHA - 7 assessed: 07/14/24 Feeling nervous, anxious, or on edge: 0 = Not at all Not being able to stop or control worryin = Not at all Worrying too much about different things: 0 = Not at all Trouble relaxin = Not at all Being so restless that it is hard to sit still: 0 = Not at all Becoming easily annoyed or irritable: 0 = Not at all Feeling afraid as if something awful might happen: 0 = Not at all Total RADHA-7 score (0-4 normal; 5-9 mild; 10-14 moderate; 15-21 severe): 0 Source: Developed by Drs. Ashish Jimenez, Ada Hawthorne, Hernando Alexandre and colleagues, with an educational delisa from [employer]. RADHA-7 Assessment Billing RADHA-7 Assessment Tool: RADHA-7 Assessment 85743 Review of Systems Const Denies body aches, Denies chills, Denies fever(s), Denies headache(s) and Denies poor appetite Eyes Reports no additional complaints ENT Denies dysphagia, Denies dizziness, Denies headache(s) and Denies odynophagia Card Denies chest pain, Denies syncope, Denies edema, Denies irregular heart rhythm, Denies lightheadedness and Denies dyspnea Resp Denies cough and Denies dyspnea GI Denies abdominal pain, Denies constipation, Denies dysphagia, Denies diarrhea, Denies nausea, Denies odynophagia and Denies vomiting Reports no additional complaints Musc Reports no additional complaints and Denies abnormal gait Skin/Breast Reports system reviewed and no additional complaints, except as documented Neuro Denies abnormal gait, Denies dizziness, Denies syncope and Denies headache(s) Psych Reports no additional complaints Physical exam (Primary Care) Tobacco/Smoking Status: Tobacco use Status Tobacco use date assessed 04/25/24 04/25/24 09:47 Patient Tobacco Use Status Never used Tobacco 04/25/24 09:47 Tobacco use type Cigarette 04/25/24 09:47 e-Cigarette/Vaping Use Never Used 04/25/24 09:47 Depression Screening Interpretation: Negative Thrive Assessment: Date of Thrive Assessment Date Thrive assessed 02/21/25 02/21/25 09:47 Currently or been in a relationship where the following occur: I choose not to answer Const General: cooperative, healthy appearing, comfortable and no acute distress Orientation/consciousness: patient oriented x3 HENMT Head: Yes normocephalic Ears: hearing grossly normal bilaterally General nose exam: Normal external nose present Eyes General: appearance normal, both eyes and all related structures Conjunctivae: conjunctivae normal Neck Neck: Yes full ROM and Yes no lymphadenopathy Resp Effort & Inspection: normal respiratory effort Auscultation: clear to auscultation bilaterally, no crackles, no rales, no rhonchi and no wheezes Cardio Rate: regular rate Rhythm: regular rhythm Skin General skin exam: no rashes or lesions noted Neuro General: patient oriented x3 Gait exam (Neuro): Normal gait present Extrem General: Yes normal to inspection, Yes full ROM and No edema Psych Affect: normal affect Attitude: cooperative Insight: Good insight present (Psych) Judgement: Good judgement present (Psych) Coding Level of Care Code Est Pt Level 4 (99527) Diagnoses Hypertension I10 Morbid obesity E66.01 Diabetes mellitus E11.9 Hypercholesterolemia E78.00 Additional Codes RADHA-7 Assessment Billing - RADHA-7 Assessment Tool: RADHA-7 Assessment 40606 ([id number]) Assessment & Plan Assessment & Plan (1) Hypertension: Code(s): I10 - Essential (primary) hypertension Category: Medical Plan: Continue on current blood pressure medication. Avoid salt intake and encourage healthy diet and regular exercise. (2) Morbid obesity: Code(s): E66.01 - Morbid (severe) obesity due to excess calories Category: Medical Plan: Healthy diet and regular exercise is encouraged. (3) Diabetes mellitus: Code(s): E11.9 - Type 2 diabetes mellitus without complications Category: Medical Plan: Decrease the amount of carbohydrates such as pasta, bread, rice, and potatoes and limit the amount of sweets. Although fruits are generally healthy they should be eaten in moderation as they are still high in sugar. Hemoglobin A1c goal of less than 7%. His fasting glucose was elevated on last blood work above 126 indicating diagnosis of diabetes. Blood work is from last year plan to obtain updated blood work and treat accordingly. Patient regularly follows with eye doctor. Plan to follow up in 3 months. Diabetic resources were given to patient at this visit. (4) Hypercholesterolemia: Code(s): E78.00 - Pure hypercholesterolemia, unspecified Category: Medical Plan: Avoid foods that are high in cholesterol such as red meat, fried foods, eggs and baked goods. Triglyceride goal of less than 150 and LDL goal of less than 100. Patient having new diagnosis of diabetes adjust LDL goal to be less than 100 plan to obtain updated blood work and can consider cholesterol management. Plan In managing the patient's chronic conditions, emphasis was placed on dietary adjustments for diabetes mellitus and hypercholesterolemia with ongoing pharmaceutical therapy for hypertension. Updated fasting blood work was ordered to monitor diabetes and cholesterol levels. Annual ophthalmologic evaluation was advised given diabetes status. The patient's exercise routine was recognized as beneficial, with continued encouragement to manage weight and metabolic indices. Diabetes education materials were provided, emphasizing lifestyle modifications including dietary and nighttime eating adjustments. This note was constructed using voice recognition software. While every effort has been made to ensure accuracy and refuge manager, still areas may have been included sometimes these areas may affect the content or meeting of the given symptoms. Total time spent caring for the patient today was 30 minutes. This includes time spent before the visit reviewing the chart, time spent during the visit, and time spent after the visit and documentation. Patient was informed and verbally consented to the use of an ambient scribe for clinic note documentation during this visit. Orders: Orders Lipid Panel Today E78.00 - Pure hypercholesterolemia, unspecified Vitamin D 25-OH Total Today Z00.00 - Encounter for general adult medical examination without abnormal findings TSH reflex Free T4 Today Z00.00 - Encounter for general adult medical examination without abnormal findings Free T4 (Free Thyroxine) Today Z00.00 - Encounter for general adult medical examination without abnormal findings Hemoglobin A1c Today R73.01 - Impaired fasting glucose Complete Blood Count Auto Diff Today Z00.00 - Encounter for general adult medical examination without abnormal findings Comprehensive Met. Panel Today Z00.00 - Encounter for general adult medical examination without abnormal findings Vitamin B12 and Folate Today Z00.00 - Encounter for general adult medical examination without abnormal findings Microalbumin, Random (w Creat) Today E11.9 - Type 2 diabetes mellitus without complications
[2024-07-14 13:58] VITALS: BP 132/74; PULSE 86; TEMP 36.3; O2SAT 96; BMI 50.5
== END 2024-07-14 15:07 | disposition home or self-care (01) ==
DX: I10 Essential (primary) hypertension (principal); E66.01 Morbid (severe) obesity due to excess calories; E11.9 Type 2 diabetes mellitus without complications; Z68.43 Body mass index [BMI] 50.0-59.9, adult; E78.00 Pure hypercholesterolemia, unspecified

== ENCOUNTER → 2024-07-14 13:38 | Outpatient (BNVA) | payer OTHER, SELFPAY | PROVIDERS: PCP Internal Medicine | DX: I10 Essential (primary) hypertension (principal); E66.01 Morbid (severe) obesity due to excess calories; E11.9 Type 2 diabetes mellitus without complications; E78.00 Pure hypercholesterolemia, unspecified; Z68.43 Body mass index [BMI] 50.0-59.9, adult | CPT/HCPCS: 96127; 99212 ==

== ENCOUNTER 2024-07-24 06:17 | Outpatient (REF) | payer OTHER, SELFPAY ==
[2024-07-24 10:16] LABS: MANUAL DIFF FLAG NO
[2024-07-24 10:22] LABS: Basophils Absolute Auto 0.1 X10*3/uL (0.0-0.2); Basophils Percent Auto 0.6 % (0-2); Eosinophils Absolute Auto 0.5 X10*3/uL (0.0-0.4); Eosinophils Percent Auto 4.8 % (0-4); Hematocrit 36.8 % (42.0-52.0); Hemoglobin 12.4 g/dl (14.0-18.0); Imm Gran Abs Auto 0.04 X10*3/uL (0.00-0.03); Imm Gran Pct Auto 0.4 % (0.0-0.4); Lymphocytes Absolute Auto 2.9 X10*3/uL (1.2-4.9); Lymphocytes Percent Auto 29.4 % (20-40); Mean Corpuscular HGB Conc 33.7 g/dl (31.0-36.0); Mean Corpuscular Hemoglobin 30.3 pg (27.0-33.0); Mean Platelet Volume 9.9 fL (9.4-12.4); Monocytes Absolute Auto 0.8 X10*3/uL (0.1-1.2); Monocytes Percent Auto 7.6 % (2-11); Neutrophils Absolute Auto 5.7 x10*3/uL (2.0-8.3); Neutrophils Percent Auto 57.2 % (45-73); Platelet Count 328 X10*3/uL (160-400); Red Blood Count 4.09 X10*6/uL (4.60-5.80); Red Cell Distribution Width 12.4 % (11.0-16.0); White Blood Count 9.9 X10*3/uL (4.8-10.8)
[2024-07-24 11:07] LABS: Estimated Average Glucose 117 mg/dL; Hemoglobin A1C 127.3568 umol/L; Hemoglobin A1c % 5.7 % (<6.0); Total Hemoglobin (HGBA1C) 3254.2546 umol/L
[2024-07-24 11:30] LABS: Folate 9.3 ng/mL (> or = 4.0); Vitamin B12 496 pg/mL (200-900)
[2024-07-24 11:46] LABS: Alanine Aminotransferase 24 U/L (0-40); Albumin Level 4.1 g/dL (3.5-5.0); Alkaline Phosphatase 63 U/L (39-117); Anion Gap 14 (12-20); Aspartate Amino Transferase 25 U/L (5-37); Bilirubin Total 0.4 mg/dL (0.0-1.0); Blood Urea Nitrogen 50 mg/dL (9-16); Calcium 9.5 mg/dL (8.4-10.2); Carbon Dioxide 22 mmol/L (22-29); Chloride 106 mmol/L (96-108); Cholesterol 185 mg/dL (<200); Estimated Glomerular Filt Rate > 60; Free T4 (Free Thyroxine) 0.83 ng/dL (0.71-1.85); Glucose Random 103 mg/dL (60-115); HDL Cholesterol 30 mg/dL (>40); LDL Cholesterol Calculated 113 mg/dL (<100); Potassium 5.2 mmol/L (3.3-5.1); Sodium 137 mmol/L (135-145); TSH reflex Free T4 1.32 uIU/mL (0.32-4.0); Total Protein 7.4 g/dL (6.5-8.0); Triglycerides 214 mg/dL (<150); Vitamin D 25-OH Total 44.8 ng/mL (>30)
== END 2024-07-24 06:18 | disposition home or self-care (01) ==
LOC: HO.HMGCLDS 06:17
DX: Z00.00 Encounter for general adult medical examination without abnormal findings (principal); E78.00 Pure hypercholesterolemia, unspecified; R73.01 Impaired fasting glucose
CPT/HCPCS: 36415; 80053; 80061; 82306; 82607; 82746; 83036; 84439; 84443; 85025

== ENCOUNTER 2024-08-12 06:05 | Outpatient (REF) | payer OTHER, SELFPAY ==
[2024-08-12 10:37] LABS: Potassium 4.9 mmol/L (3.3-5.1)
== END 2024-08-12 06:06 | disposition home or self-care (01) ==
LOC: HO.HMGCLDS 06:05
DX: E87.5 Hyperkalemia (principal)
CPT/HCPCS: 36415; 84132

== ENCOUNTER 2024-10-08 11:12 | Outpatient (AMB) | payer OTHER, SELFPAY ==
--- NOTE | 2024-10-08 11:26 | MHC.PC.OV ---
Vital Signs 10/08/24 11:28 Height 5 ft 3 in Weight 272 lb BMI 48.2 BP 128/62 Blood Pressure Location Lt brachial Position Sitting Pulse 78 Pulse Source Pulse Oximeter Pulse Oximetry (%) 99 Oxygen Delivery Method Room Air Intake Visit Reasons: 3 month f/u Tanning Wheel Filler Required: No Accompanied by: Self / Same As Patient Allergies No Known Allergies Allergy (Verified 10/08/24 11:48) Medication List - Last Reconciled 10/08/24 by Sandra Walsh PA-C celecoxib 200 mg PO DAILY hydrochlorothiazide 25 mg PO QAM lisinopril 40 mg PO DAILY Tobacco use date assessed: 10/08/24 Dental Screening Dental Screen Date: 10/08/24 Did you have a dental visit in the last 12 months?: Yes Did you have a dental problem in the last 6 months where you did not have access to dental care?: No Was dental information given to patient?: Patient has dentist HPI 3 month f/u HPI Details 49-year-old male with past medical history of hypertension and morbid obesity last seen 07/2024 coming in for follow up.? Repeat blood work was ordered at last visit. Presenting with a follow-up visit to review blood work results and manage chronic conditions. Cholesterol levels were slightly elevated, with triglycerides at 214 mg/dL, above the desired level of less than 150 mg/dL. Elevated kidney function tests were noted, potentially due to dehydration, as the patient reported inadequate water intake during hot weather and while on diuretics. The patient is on two antihypertensive medications, including hydrochlorothiazide, a diuretic that may contribute to dehydration. The patient has not had a physical exam since 2022 and is due for one, along with blood pressure monitoring and follow-up in three months. [facility] Medical History (Updated 10/08/24 @ 12:59 by Sandra Walsh PA-C) Diabetes mellitus Morbid obesity Surgical History History of ankle surgery Family History Mother Alive and well Endometrial cancer Father Coronary artery disease Social History Housing: House Alcohol intake: never Patient Tobacco Use Status: Never used Tobacco Tobacco use type: Cigarette e-Cigarette/Vaping Use: Never Used Second Hand Smoke Exposure: No service: No Current occupational status: disabled Cognitive needs: No Hearing needs: No Vision needs: Yes (Glasses) Questionnaire Thrive Questionnaire Date Thrive assessed: 10/08/24 I am a: Patient What is your living situation today?: I have a steady place to live Within the past 12 months, did the food you bought not last and you didn't have the money to get more?: Never true Within the past 12 months, did you worry whether your food would run out before you got money to buy more?: Never true Do you have trouble paying for medicines?: No Do you have trouble getting transportation to medical appointments?: No Do you have trouble paying your heating and electricity bill?: No Do you have trouble taking care of your child, family member or friend?: No Do you have trouble with day-to-day activities such as bathing, preparing meals, shopping, managing finances, etc.?: No Are you currently unemployed and looking for a job?: No Are you interested in more education?: No Please select the resources that you would like help with: None Currently or been in a relationship where the following occur: I choose not to answer THRIVE Score: 0 RADHA-7 AMB Questionnaire RADHA-7 Date RADHA - 7 assessed: 10/08/24 Source: Developed by Drs. Ashish Jimenez, Ada Hawthorne, Hernando Alexandre and colleagues, with an educational delisa from [employer]. Review of Systems Const Denies body aches, Denies chills, Denies fever(s), Denies headache(s) and Denies poor appetite Eyes Reports no additional complaints ENT Denies dizziness and Denies headache(s) Card Denies chest pain, Denies lightheadedness and Denies dyspnea Resp Denies cough and Denies dyspnea GI Denies abdominal pain, Denies nausea and Denies vomiting Reports no additional complaints Musc Reports no additional complaints and Denies abnormal gait Skin/Breast Reports system reviewed and no additional complaints, except as documented Neuro Denies abnormal gait, Denies dizziness and Denies headache(s) Psych Reports no additional complaints Physical exam (Primary Care) Vital Signs: Last Vital Signs Pulse 78 10/08/24 11:28 BP 128/62 10/08/24 11:28 Pulse Ox 99 10/08/24 11:28 Oxygen Delivery Method Room Air 10/08/24 11:28 BMI result Body Mass Index 48.2 Tobacco/Smoking Status: Tobacco use Status Tobacco use date assessed 10/08/24 10/08/24 11:34 Patient Tobacco Use Status Never used Tobacco 10/08/24 11:34 Tobacco use type Cigarette 10/08/24 11:34 e-Cigarette/Vaping Use Never Used 10/08/24 11:34 Thrive Assessment: Date of Thrive Assessment Date Thrive assessed 10/08/24 10/08/24 11:34 Currently or been in a relationship where the following occur: I choose not to answer Const General: cooperative, healthy appearing, comfortable and no acute distress Orientation/consciousness: patient oriented x3 HENMT Head: Yes normocephalic Ears: hearing grossly normal bilaterally General nose exam: Normal external nose present Eyes General: appearance normal, both eyes and all related structures Conjunctivae: conjunctivae normal Neck Neck: Yes full ROM and Yes no lymphadenopathy Resp Effort & Inspection: normal respiratory effort Auscultation: clear to auscultation bilaterally, no crackles, no rales, no rhonchi and no wheezes Cardio Rate: regular rate Rhythm: regular rhythm Skin General skin exam: no rashes or lesions noted Neuro General: patient oriented x3 Gait exam (Neuro): Normal gait present Extrem General: Yes normal to inspection, Yes full ROM and No edema Psych Affect: normal affect Attitude: cooperative Insight: Good insight present (Psych) Judgement: Good judgement present (Psych) Coding Level of Care Code Est Pt Level 3 (17581) Diagnoses Primary hypertension I10 Hypertension type: primary hypertension Elevated fasting glucose R73.01 Hypercholesterolemia E78.00 Elevated BUN R79.9 Assessment & Plan Assessment & Plan (1) Hypertension: Code(s): I10 - Essential (primary) hypertension Category: Medical Qualifiers: Hypertension type: primary hypertension Qualified Code(s): I10 - Essential (primary) hypertension Plan: Continue on current blood pressure medication. Avoid salt intake and encourage healthy diet and regular exercise. Patient is currently on hydrochlorothiazide and lisinopril however his creatinine is elevated on last blood work. Plan to repeat blood work in the next week advised patient to increase fluid intake. Consider medication adjustment if creatinine does not improve (2) Elevated fasting glucose: Code(s): R73.01 - Impaired fasting glucose Category: Medical Plan: Decrease the amount of carbohydrates such as pasta, bread, rice, and potatoes and limit the amount of sweets. Although fruits are generally healthy they should be eaten in moderation as they are still high in sugar. Last hemoglobin within normal limits (3) Hypercholesterolemia: Code(s): E78.00 - Pure hypercholesterolemia, unspecified Category: Medical Plan: Avoid foods that are high in cholesterol such as red meat, fried foods, eggs and baked goods. Triglyceride goal of less than 150 and LDL goal of less than 130. (4) Elevated BUN: Code(s): R79.9 - Abnormal finding of blood chemistry, unspecified Category: Medical Plan: Advised patient to increase fluid intake and consider change in the blood pressure medications if creatinine or BUN does not improve. Plan The patient will continue with current antihypertensive medications, but if dehydration persists, the dosage of hydrochlorothiazide may be adjusted. Blood work will be repeated to monitor kidney function, and the patient is advised to increase water intake, especially during hot weather. A follow-up appointment is scheduled in three months to reassess blood pressure and conduct a physical examination. This note was constructed using voice recognition software. While every effort has been made to ensure accuracy and timber harvester operator, still areas may have been included sometimes these areas may affect the content or meeting of the given symptoms. Total time spent caring for the patient today was 20 minutes. This includes time spent before the visit reviewing the chart, time spent during the visit, and time spent after the visit and documentation. Patient was informed and verbally consented to the use of an ambient scribe for clinic note documentation during this visit. Orders: Orders Basic Metabolic Panel Today R79.9 - Abnormal finding of blood chemistry, unspecified
[2024-10-08 11:28] VITALS: BP 128/62; PULSE 78; O2SAT 99; BMI 48.2
== END 2024-10-08 11:57 | disposition home or self-care (01) ==
LOC: HO.HMCH 11:12
DX: I10 Essential (primary) hypertension (principal); R73.01 Impaired fasting glucose; E78.00 Pure hypercholesterolemia, unspecified; R79.9 Abnormal finding of blood chemistry, unspecified

== ENCOUNTER → 2024-10-08 11:12 | Outpatient (BNVA) | payer OTHER, SELFPAY | DX: I10 Essential (primary) hypertension (principal); E66.01 Morbid (severe) obesity due to excess calories; R73.01 Impaired fasting glucose; E78.00 Pure hypercholesterolemia, unspecified; R79.9 Abnormal finding of blood chemistry, unspecified; Z79.899 Other long term (current) drug therapy; Z68.42 Body mass index [BMI] 45.0-49.9, adult | CPT/HCPCS: 99212 ==

== ENCOUNTER 2025-01-04 10:26 | Emergency (ER) | payer OTHER, SELFPAY ==
--- NOTE | ~2025-01-04 | XR_ITS ---
CLINICAL HISTORY: pain, injury 3 view right ankle Comparison: None provided Findings: There are multiple chronic ossific bodies adjacent to the medial malleolus. Similar ossific bodies adjacent to the posterior malleolus and in the region of the Achilles tendon insertion. No gross evidence of acute displaced fracture. Mild relative widening of the lateral ankle mortise is noted. Mild arthritic change. No ankle effusion. No radiopaque foreign body. IMPRESSION: 1. No acute displaced fracture. 2. Multiple chronic appearing bone fragments within the ankle as described. 3. Mild relative widening of the lateral ankle mortise. This document has been electronically signed by: Sophie Nelson MD on 01/04/2025 13:10:08
--- NOTE | ~2025-01-04 | XR_ITS ---
CLINICAL HISTORY: pain, injury Three-view pelvis and right hip Comparison: None provided Findings: Evaluation mildly limited by body habitus. Small ossific body adjacent to the right acetabulum, likely chronic. No acute displaced fracture. No dislocation. No significant arthritic change. No obvious focal soft tissue abnormality. IMPRESSION: No acute findings. This document has been electronically signed by: Sophie Nelson MD on 01/04/2025 13:19:15
--- NOTE | ~2025-01-04 | XR_ITS ---
CLINICAL HISTORY: pain, injury 3 view right foot Comparison: None provided Findings: Small chronic ossific bodies adjacent to the medial malleolus and in the region of the achilles tendon insertion. No acute fracture. Soft tissue edema noted. No significant loss of joint space, osteophytes, or erosions. No ankle effusion. No radiopaque foreign body. IMPRESSION: No acute bony injury. This document has been electronically signed by: Sophie Nelson MD on 01/04/2025 13:14:33
[2025-01-04 10:36] VITALS: BP 170/100; PULSE 100; O2SAT 100
[2025-01-04 10:41] VITALS: BP 137/63; PULSE 108; RESP 20; TEMP 36.4; O2SAT 98; BMI 44.6
--- NOTE | 2025-01-04 11:12 | ED_ITS ---
HPI - General Adult General Chief complaint: General Medical Stated complaint: LIMPING,TIED SHOES,NO PAIN,BP 170/100 PER EMS Time Seen by Provider: 01/04/25 11:12 Source: patient, family (patient's parents) and EMS Mode of arrival: EMS Limitations: no limitations History of Present Illness ED Provider: Abbie Hendrix PA-C HPI narrative: Patient is a 49 year old assigned male at with a history of DM and HTN presenting to the emergency department today with right ankle pain and limping. Patient states that he works at [employer] and after he went to bend down to tie his shoe, he twisted his right foot / ankle, and began to have pain. Patient denies any head strike or loss of consciousness with the incident. Patient denies any other complaints at this time. Related Data Previous Rx's ?Medication ?Instructions ?Recorded lisinopril 40 mg tablet 40 mg PO DAILY #90 tabs 09/02 06/27 hydrochlorothiazide 25 mg tablet 25 mg PO QAM #90 tabs 12/09/24 Allergies Allergy/AdvReac Type Severity Reaction Status Date / Time No Known Allergies Allergy Verified 01/04/25 10:42 Review of Systems Constitutional: Constitutional: Reports as per HPI Eyes: Eyes: Reports as per HPI ENT: Reports as per HPI Cardiovascular: Cardiovascular: Reports as per HPI Respiratory: Respiratory: Reports as per HPI Gastrointestinal: Gastrointestinal: Reports as per HPI Genitourinary: Genitourinary: Reports as per HPI Musculoskeletal: Musculoskeletal: Reports as per HPI Integumentary/Breasts: Skin/Breast: Reports as per HPI Neurologic: Reports as per HPI Psychiatric: Psychiatric: Reports as per HPI Endocrine: Endocrine: Reports as per HPI Hematologic/Lymphatic: Hematologic/Lymphatic: Reports as per HPI Allergic/Immunologic: Allergic/Immunologic: Reports as per HPI PMF Past Medical History Attestation statement: The following information was validated with the patient. (all information was validated with the patient's parents) Source: old records reviewed, obtained from family (patient's parents provided additional history and confirmed the history provided by the patient. ) and nursing notes reviewed Medical History Diabetes mellitus Morbid obesity Surgical History History of ankle surgery Family History Family History Mother Alive and well Endometrial cancer Father Coronary artery disease Social History Social History Housing: House Alcohol intake: never Patient Tobacco Use Status: Never used Tobacco Tobacco use type: Cigarette e-Cigarette/Vaping Use: Never Used Second Hand Smoke Exposure: No Advance Directives: No Advance Directives Information Provided: Yes service: No Current occupational status: disabled Cognitive needs: No Hearing needs: No Vision needs: Yes (Glasses) Physical Exam ED Vital Signs: Vital Signs - 24 hr 01/04/25 10:41 01/04/25 13:51 Temperature 97.6 F 97.6 F Pulse Rate 108 H 108 H Respiratory Rate 20 20 Blood Pressure 137/63 137/63 Pulse Oximetry 98 98 Oxygen Delivery Method Room Air Room Air BMI result Body Mass Index 44.6 Const General: cooperative, no acute distress, alert and awake Nutritional Appearance: well nourished Orientation/consciousness: patient oriented x3 HENMT Head: Yes normal to inspection and Yes atraumatic Ears: hearing grossly normal bilaterally and external ears normal General nose exam: Normal external nose present, no nasal discharge noted and no epistaxis Face and sinus: Yes normal facial exam, No abrasion and No laceration Mouth: Normal oral and palatal mucosa present, no drooling and no muffled voice Eyes General: appearance normal, both eyes and all related structures Periorbital: periorbital findings normal Eyelids: Yes eyelids normal Conjunctivae: conjunctivae normal Pupils: Equal, round and reactive pupils present EOM: EOMs intact bilaterally Neck Neck: Yes normal visual inspection and Yes full ROM Resp Effort & Inspection: normal respiratory effort and able to speak in complete sentences Neuro General: patient oriented x3, moves all extremities and CN's II-XI intact bilaterally Cranial nerves: Yes Equal, round and reactive pupils present Cognition (Neuro): normal cognition Extrem Other: decreased ROM of the right ankle secondary to pain lateral swelling present to the right ankle General: Yes capillary refill normal Psych Appearance: grossly normal Mental Status: mental status grossly normal Affect: normal affect Attitude: cooperative Thought process: Normal thought process present Thought content: Normal thought content present Insight: Good insight present (Psych) Procedures Orthopedic Splinting/Casting Right ankle injury: Side: right Lower Extremity Injury Location: ankle Lower Extremity Immobilizer: boot orthosis Medical Decision Making Medical Decision Making MDM Narrative: Patient is a 49 year old assigned male at with a history of DM and HTN presenting to the emergency department today with right ankle pain and limping. Patient's physical exam was as noted in the physical exam portion of this note and consistent with right ankle sprain / strain. Patient's right hip x-ray showed no acute process. Patient's right ankle + right foot x-ray showed small chronic ossific bodies adjacent to the medial malleolus and there was mild widening of the lateral malleolus. Patient's clinical presentation is most consistent with an ankle sprain / strain. I explained my physical exam findings as well as all test results to the patient and the patient's parents. I answered all questions asked by the patient and the patient's parents. Patient's right foot / ankle was placed in a tall ankle boot, without incident. Patient's PMS was intact prior to and after boot placement. I stressed the importance of the patient taking his medication as directed (either prescribed or as the over the counter packaging recommends). I stressed the importance of the patient following up with his primary care provider. I stressed the importance of the patient returning to the emergency department immediately if his symptoms were to worsen or if he were to develop any dizziness, shortness of breath, difficulty breathing, chest pain, blurry vision, loss of vision, nausea, vomiting, abdominal pain, fever, chills, back pain, or any other complaints. Patient and the patient's parents verbalized agreement and understanding with this treatment plan and discharge. Differential Diagnosis Differential Diagnoses: The differential diagnosis associated with the presentation includes Right ankle sprain Right ankle strain Right ankle fracture Admission/Observation Consideration of admission/observation: Escalation of care including admission/observation considered Patient would have been admitted to the hospital had his work up had any findings where hospital admission was appropriate and his clinical presentation warranted hospital admission. Independent Interpretation I performed an independent interpretation of an: Plain X-Ray Interpretation: My interpretation is in agreement with the radiologist's impression of these imaging studies. Reason for Exam: pain, injury CLINICAL HISTORY: pain, injury 3 view right ankle Comparison: None provided Findings: There are multiple chronic ossific bodies adjacent to the medial malleolus. Similar ossific bodies adjacent to the posterior malleolus and in the region of the Achilles tendon insertion. No gross evidence of acute displaced fracture. Mild relative widening of the lateral ankle mortise is noted. Mild arthritic change. No ankle effusion. No radiopaque foreign body. IMPRESSION: 1. No acute displaced fracture. 2. Multiple chronic appearing bone fragments within the ankle as described. 3. Mild relative widening of the lateral ankle mortise. This document has been electronically signed by: Sophie Nelson MD on 01/04/2025 13:10:08 Dictated By: Sophie Nelson MD Signed By: Electronically signed by Sophie Nelson MD 01/04/25 131 Reason for Exam: pain, injury CLINICAL HISTORY: pain, injury 3 view right foot Comparison: None provided Findings: Small chronic ossific bodies adjacent to the medial malleolus and in the region of the achilles tendon insertion. No acute fracture. Soft tissue edema noted. No significant loss of joint space, osteophytes, or erosions. No ankle effusion. No radiopaque foreign body. IMPRESSION: No acute bony injury. This document has been electronically signed by: Sophie Nelson MD on 01/04/2025 13:14:33 Dictated By: Sophie Nelson MD Signed By: Electronically signed by Sophie Nelson MD 01/04/25 498 Reason for Exam: pain, injury CLINICAL HISTORY: pain, injury Three-view pelvis and right hip Comparison: None provided Findings: Evaluation mildly limited by body habitus. Small ossific body adjacent to the right acetabulum, likely chronic. No acute displaced fracture. No dislocation. No significant arthritic change. No obvious focal soft tissue abnormality. IMPRESSION: No acute findings. This document has been electronically signed by: Sophie Nelson MD on 04/2024 13:19:15 Dictated By: Sophie Nelson MD Signed By: Electronically signed by Sophie Nelson MD 01/04/25 1320 Radiology Impression Discussion of test interpretation with radiology: I have reviewed the radiologist's reading. Independent Historian Clinical information obtained from an independent historian. History obtained from or confirmed by: Parent (Patient's parents provided additional history and confirmed the history provided by the patient.) and EMS (EMS provided additional history and confirmed the history provided by the patient.) Discharge Plan Discharge Clinical Impression: Ankle sprain Patient Disposition: Home, Self-Care Instructions: Ankle Sprain (DC), Walking Boot (ED) Additional Instructions: Wear your walking boot as needed for comfort. Follow up with the podiatry team. IF you are prescribed home medications and/or you are taking over the counter medications at home - it is very important you continue to do so as prescribed / directed unless told otherwise. Follow up with your primary care provider. Return to the emergency department immediately if your symptoms worsen or if you develop any numbness, tingling, dizziness, shortness of breath, difficulty breathing, chest pain, blurry vision, loss of vision, nausea, vomiting, abdominal pain, fever, chills, back pain, or any other complaints. Please see the information below about our Patient Portal. If you are not yet enrolled in the [facility] Patient Portal, you will receive an enrollment email invitation following your visit to any [facility] care setting. You may also self-enroll in the Patient Portal by visiting our website: [email or web address] The following information is required to access the Patient Portal: - Your [facility] Medical Record Number - Your personal home email address (must match what is in your electronic medical record, Registration staff can assist with this) - Name - Date of Capabilities of the Patient Portal: - Message some providers - View upcoming appointments - Access your health summary, medical history, and visit history - View current conditions and allergies - View procedure and lab results - View your medications, including guidelines, side effects, and precautions - Complete pre-appointment questionnaires requested by your provider - Ready summary reports of your office visits and procedures To access the Patient Portal Mobile Jj, follow these directions: - Search [employer] in the Jj Store or [employer] Store - Download the Jj - Search for [facility] - Enter your login/password Prescriptions: No Action lisinopril 40 mg tablet 40 mg PO DAILY Qty: 90 3RF hydrochlorothiazide 25 mg tablet 25 mg PO QAM Qty: 90 1RF Referrals: [facility] [Provider Group, Podiatry] Referral Note: Call to establish and follow up with the podiatry team for right ankle sprain. Sandra Walsh PA-C [Primary Care Provider, Internal Medicine] Interventions: ED Discharge Assessment Last Done: 01/04/25 13:51 Discharge Date/Time: 01/04/25 13:53 Print Language: Montenegrin
[2025-01-04 13:51] VITALS: BP 137/63; PULSE 108; RESP 20; TEMP 36.4; O2SAT 98
== END 2025-01-04 13:53 | disposition home or self-care (01) ==
PROVIDERS: Emergency Provider Emergency Medicine Emergency Medical Services
DX: S93.401A Sprain of unspecified ligament of right ankle, initial encounter (principal); M25.551 Pain in right hip; M25.571 Pain in right ankle and joints of right foot; E11.9 Type 2 diabetes mellitus without complications; I10 Essential (primary) hypertension; X58.XXXA Exposure to other specified factors, initial encounter; Y93.9 Activity, unspecified; Y92.9 Unspecified place or not applicable; Y99.8 Other external cause status
CPT/HCPCS: 73502; 73610; 73630; 99282; 99283

== ENCOUNTER → 2025-01-04 11:23 | Outpatient (BNV) | payer OTHER, SELFPAY | PROVIDERS: Emergency Provider Emergency Medicine Emergency Medical Services; Visit Provider Radiology Diagnostic Radiology | DX: S79.911A Unspecified injury of right hip, initial encounter (principal); S99.911A Unspecified injury of right ankle, initial encounter; S99.921A Unspecified injury of right foot, initial encounter | CPT/HCPCS: 73502; 73610; 73630 ==

== ENCOUNTER 2025-01-09 08:56 | Outpatient (AMB) | payer OTHER, SELFPAY ==
[2025-01-09 09:08] VITALS: BMI 44.6
--- NOTE | 2025-01-09 09:08 | MHC.OFFVIS ---
Vital Signs 01/09/25 09:08 Height 5 ft 4 in Weight 260 lb BMI 44.6 Intake Visit Reasons: ED fu right ankle sprain Intake Note: Adam is a 49 year old male who presents today as a new patient for an evaluation of his right ankle sprain. Pt reports he bent down to tie his shoes at work and when he was getting back up he had pain in his ankle. He was [place] [facility] [place]04[place] where he was provided with a walking boot and X-rays where taken. Patient has history of fracturing his left ankle back in 2001. Allergies No Known Allergies Allergy (Verified 01/09/25 09:09) HPI Comments Details: The patient is a 49-year-old male with a past medical history as seen below presenting with a right foot and ankle injury. The patient slipped while bending down time his shoe, resulting in pain and swelling to the right lower extremity. Patient states the pain was significant and he went to the ED where x-rays were taken. Patient was given a cam boot and has been using a walker. Patient has been weight-bearing as tolerated. Patient states his symptoms have significantly improved. He denies any numbness or tingling. He denies any other pedal concerns. Patient states he has a history of sudden ankle surgery to the left lower extremity with plates and screws. Tiarra was accompanied by his parents. [facility] Medical History (Updated 01/09/25 @ 09:59 by Elida Kolb DPM) Right ankle sprain Nondisplaced fracture of medial malleolus of right tibia, initial encounter for closed fracture Nondisplaced fracture of fifth metatarsal bone, right foot, initial encounter for closed fracture Arthritis of right foot Arthritis of ankle, right, degenerative Right ankle pain Right foot pain Right foot injury Right ankle injury Diabetes mellitus Morbid obesity Surgical History History of ankle surgery Family History Mother Alive and well Endometrial cancer Father Coronary artery disease Social History Housing: House Alcohol intake: never Patient Tobacco Use Status: Never used Tobacco Tobacco use type: Cigarette e-Cigarette/Vaping Use: Never Used Second Hand Smoke Exposure: No service: No Current occupational status: disabled Cognitive needs: No Hearing needs: No Vision needs: Yes (Glasses) Review of Systems Const Details: - Musculoskeletal: Denies current pain in the right foot and ankle, reports previous pain following injury. - Integumentary: Denies bruising or significant discoloration post-injury. All systems reviewed & are unremarkable except as noted in HPI and below Physical Exam Vital Signs: BMI result Body Mass Index 44.6 Extrem Other: Right lower extremity focused physical exam: Derm: No open lesions abrasions or wounds noted. No ecchymosis or discoloration noted. Mild erythema noted to the dorsal aspect of the latham due to previous cam boot tightness. No clinical signs of infection noted. Vascular: DP/PT pulses palpable. Capillary refill time less than 3 seconds. Temperature gradient warm to. Pedal hair present. No varicosities noted. Minimal edema noted. Neuro: Protective sensation is grossly intact. MSK: No pain on palpation along the ankle in the medial and lateral malleoli. No pain on palpation along the medial and lateral aspects of the foot. Range of motion of the forefoot, hindfoot and ankle within normal limits. No crepitus noted. MMT 5/5. No fluctuance noted. Mildly antalgic gait with the use of a walker noted. Office Procedures AMB Podiatry Dressing Details of Procedure: Applied a stockinette, cast padding, Lane bandage to the right lower extremity with the use of the cam boot. 51166 - Short leg splint Procedure code (CPT) selection complete Results Reviewed Results Reviewed: Podiatry read of right foot x-ray (01/04/2025): Avulsion fracture noted to the base of the 5th metatarsal. Osteophytic changes noted to the midfoot. Bone spurs noted to the plantar and posterior aspect of the calcaneus. Mild calcification of a vessel noted along course of Achilles tendon. Kager's triangle intact. Right foot x-ray (01/04/2025): Findings: Small chronic ossific bodies adjacent to the medial malleolus and in the region of the achilles tendon insertion. No acute fracture. Soft tissue edema noted. No significant loss of joint space, osteophytes, or erosions. No ankle effusion. No radiopaque foreign body. IMPRESSION: No acute bony injury. Podiatry read of right ankle x-ray (01/04/2025): Avulsion fractures noted to the distal tip of the medial malleolus. Mild joint space narrowing noted to the ankle. Osteophytic changes noted to the right ankle. No acute dislocations noted. Right ankle x-ray (01/04/2025): Findings: There are multiple chronic ossific bodies adjacent to the medial malleolus. Similar ossific bodies adjacent to the posterior malleolus and in the region of the Achilles tendon insertion. No gross evidence of acute displaced fracture. Mild relative widening of the lateral ankle mortise is noted. Mild arthritic change. No ankle effusion. No radiopaque foreign body. IMPRESSION: 1. No acute displaced fracture. 2. Multiple chronic appearing bone fragments within the ankle as described. 3. Mild relative widening of the lateral ankle mortise. Assessment & Plan Assessment & Plan (1) Right ankle injury: Code(s): S99.911A - Unspecified injury of right ankle, initial encounter Category: Medical Qualifiers: Encounter type: initial encounter Qualified Code(s): S99.911A - Unspecified injury of right ankle, initial encounter (2) Right foot injury: Code(s): S99.921A - Unspecified injury of right foot, initial encounter Category: Medical Qualifiers: Encounter type: initial encounter Qualified Code(s): S99.921A - Unspecified injury of right foot, initial encounter (3) Right foot pain: Code(s): M79.671 - Pain in right foot Category: Medical (4) Right ankle pain: Code(s): M25.571 - Pain in right ankle and joints of right foot Category: Medical Qualifiers: Chronicity: acute Qualified Code(s): M25.571 - Pain in right ankle and joints of right foot (5) Arthritis of ankle, right, degenerative: Code(s): M19.071 - Primary osteoarthritis, right ankle and foot Category: Medical Qualifiers: Osteoarthritis type: post-traumatic Qualified Code(s): M19.171 - Post-traumatic osteoarthritis, right ankle and foot (6) Arthritis of right foot: Code(s): M19.071 - Primary osteoarthritis, right ankle and foot Category: Medical (7) Nondisplaced fracture of fifth metatarsal bone, right foot, initial encounter for closed fracture: Code(s): S92.354A - Nondisplaced fracture of fifth metatarsal bone, right foot, initial encounter for closed fracture Category: Medical (8) Nondisplaced fracture of medial malleolus of right tibia, initial encounter for closed fracture: Code(s): S82.54XA - Nondisplaced fracture of medial malleolus of right tibia, initial encounter for closed fracture Category: Medical (9) Right ankle sprain: Code(s): S93.401A - Sprain of unspecified ligament of right ankle, initial encounter Category: Medical Qualifiers: Encounter type: initial encounter Involved ligament of ankle: unspecified ligament Qualified Code(s): S93.401A - Sprain of unspecified ligament of right ankle, initial encounter Plan Patient was informed and verbally consented to the use of an ambient scribe for clinic note documentation during this visit. I discussed with the patient the presence of avulsion fractures to the medial malleolus and 5th met base. We reviewed the x-ray findings, including arthritis and calcaneal bone spurs. I advised the patient on the importance of wearing supportive footwear and using a boot for stability during the healing process. A follow-up appointment was scheduled in three weeks to evaluate progress and transition to regular footwear. - Apply a stockinet, cast padding, and Lane bandage to the RLE with the use of a CAMboot. - WBAT to the RLE with the use of the CAMboot. - Transition to sneakers/supportive shoe gear at next visit pending healing/symptoms. - Adhere to RICE protocol. - May take Ibuprofen or Tylenol prn for pain. RTC in 3 weeks. Orders: Orders AMB Podiatry Dressing Today M19.071 - Primary osteoarthritis, right ankle and foot, M25.571 - Pain in right ankle and joints of right foot, M79.671 - Pain in right foot, S82.54XA - Nondisplaced fracture of medial malleolus of right tibia, initial encounter for closed fracture, S92.354A - Nondisplaced fracture of fifth metatarsal bone, right foot, initial encounter for closed fracture, S99.911A - Unspecified injury of right ankle, initial encounter, S99.921A - Unspecified injury of right foot, initial encounter Coding Level of Care Code New Pt Level 4 (70556) Diagnoses Injury of right ankle, initial encounter S99.911A Encounter type: initial encounter Injury of right foot, initial encounter S99.921A Encounter type: initial encounter Right foot pain M79.671 Acute right ankle pain M25.571 Chronicity: acute 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
== END 2025-01-09 09:53 | disposition home or self-care (01) ==
LOC: HO.HPODS 08:56
PROVIDERS: Visit Provider Student in an Organized Health Care Education/Training Program
DX: S99.911A Unspecified injury of right ankle, initial encounter (principal); S99.921A Unspecified injury of right foot, initial encounter; M79.671 Pain in right foot; M25.571 Pain in right ankle and joints of right foot; M19.171 Post-traumatic osteoarthritis, right ankle and foot; M19.071 Primary osteoarthritis, right ankle and foot; S92.354A Nondisplaced fracture of fifth metatarsal bone, right foot, initial encounter for closed fracture; S82.54XA Nondisplaced fracture of medial malleolus of right tibia, initial encounter for closed fracture; S93.401A Sprain of unspecified ligament of right ankle, initial encounter
CPT/HCPCS: 29515; 99204

== ENCOUNTER → 2025-01-09 08:56 | Outpatient (BNVA) | payer OTHER, SELFPAY | PROVIDERS: Visit Provider Student in an Organized Health Care Education/Training Program | DX: S99.911A Unspecified injury of right ankle, initial encounter (principal); S99.921A Unspecified injury of right foot, initial encounter; S92.354A Nondisplaced fracture of fifth metatarsal bone, right foot, initial encounter for closed fracture; S82.54XA Nondisplaced fracture of medial malleolus of right tibia, initial encounter for closed fracture; M19.171 Post-traumatic osteoarthritis, right ankle and foot; M19.071 Primary osteoarthritis, right ankle and foot; X58.XXXA Exposure to other specified factors, initial encounter; Y93.9 Activity, unspecified; Y92.9 Unspecified place or not applicable; Y99.9 Unspecified external cause status | CPT/HCPCS: 29515; 99202 ==

== ENCOUNTER 2025-01-14 08:37 | Outpatient (AMB) | payer OTHER, SELFPAY ==
[2025-01-14 08:53] VITALS: BP 136/84; PULSE 97; TEMP 36.2; O2SAT 98
--- NOTE | 2025-01-14 08:53 | MHC.PC.OV ---
Vital Signs 01/14/25 08:53 Height 5 ft 4 in BMI Reason not done Patient refused/unable BP 136/84 Blood Pressure Location Lt brachial Position Sitting Pulse 97 Pulse Source Pulse Oximeter Temp 97.1 F Temp Source Temporal Artery Scan Pulse Oximetry (%) 98 Oxygen Delivery Method Room Air Intake Visit Reasons: annual exam Accompanied by: Mother Allergies No Known Allergies Allergy (Verified 01/14/25 09:04) Medication List - Last Reconciled 01/14/25 by Sandra Walsh PA-C hydrochlorothiazide 25 mg PO QAM lisinopril 40 mg PO DAILY Tobacco use date assessed: 01/14/25 Dental Screening Dental Screen Date: 01/14/25 Did you have a dental visit in the last 12 months?: Yes Did you have a dental problem in the last 6 months where you did not have access to dental care?: No Was dental information given to patient?: Patient has dentist HPI annual exam HPI Details 49-year-old male with past medical history of hypertension and morbid obesity last seen 10/2024 coming in for annual exam. In review of the notes, patient was seen in [facility] 01/2025 after he twisted his ankle, imaging consistent with ankle sprain and referral was placed to podiatry. He was seen by podiatry 01/09/2025 advised WBAT with SALMA Butt protocol and follow up in 3 weeks. Presenting for an annual physical examination. The patient sustained an ankle sprain at [employer] when bending down to tie his shoes. 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 He reports pain only occurred when his foot was manipulated for x-rays in the hospital. A follow-up with podiatry is scheduled for February 03. The patient has never had a colonoscopy or used a Cologuard box for colorectal cancer screening. PSA: ordered colonoscopy: Cologuard box ordered vaccines: due for PCV given today [facility] Medical History Right ankle sprain Nondisplaced fracture of medial malleolus of right tibia, initial encounter for closed fracture Nondisplaced fracture of fifth metatarsal bone, right foot, initial encounter for closed fracture Arthritis of right foot Arthritis of ankle, right, degenerative Right ankle pain Right foot pain Right foot injury Right ankle injury Diabetes mellitus Morbid obesity Surgical History History of ankle surgery Family History Mother Alive and well Endometrial cancer Father Coronary artery disease Social History Housing: House Alcohol intake: never Patient Tobacco Use Status: Never used Tobacco Tobacco use type: Cigarette e-Cigarette/Vaping Use: Never Used Second Hand Smoke Exposure: No service: No Current occupational status: disabled Cognitive needs: No Hearing needs: No Vision needs: Yes (Glasses) Questionnaire PHQ-9 Over the last 2 weeks, how often have you been bothered by any of the following problems? 1. Little interest or pleasure in doing things: not at all 2. Feeling down, depressed, or hopeless: not at all 3. Trouble falling or staying asleep, or sleeping too much: not at all 4. Feeling tired or having little energy: not at all 5. Poor appetite or overeating: not at all 6. Feeling bad about yourself - or that you are a failure or have let yourself or your family down: not at all 7. Trouble concentrating on things, such as reading the newspaper or watching television: not at all 8. Moving or speaking so slowly that other people could have noticed. Or the opposite - being so fidgety or restless that you have been moving around a lot more than usual: not at all 9. Thoughts that you would be better off or of hurting yourself in some way: not at all Total score: 0 Depression Screening Interpretation: Negative Depression Screening Done: Yes Source: Developed by Drs. Ashish Jimenez, Ada Hawthorne, Hernando Alexandre and colleagues, with an educational delisa from [email or web address]. Thrive Questionnaire Date Thrive assessed: 07/14/24 I am a: Patient What is your living situation today?: I have a steady place to live Within the past 12 months, did the food you bought not last and you didn't have the money to get more?: Never true Within the past 12 months, did you worry whether your food would run out before you got money to buy more?: Never true Do you have trouble paying for medicines?: No Do you have trouble getting transportation to medical appointments?: No Do you have trouble paying your heating and electricity bill?: No Do you have trouble taking care of your child, family member or friend?: No Do you have trouble with day-to-day activities such as bathing, preparing meals, shopping, managing finances, etc.?: No Are you currently unemployed and looking for a job?: No Are you interested in more education?: No Please select the resources that you would like help with: None Currently or been in a relationship where the following occur: I choose not to answer THRIVE Score: 0 AUDIT C Alcohol Use Questionnaire (AUDIT-C) 1. How often do you have a drink containing alcohol?: Never 3. How often do you have six or more drinks on one occasion?: Never Total Score: 0 RADHA-7 AMB Questionnaire RADHA-7 Date RADHA - 7 assessed: 10/08/24 Feeling nervous, anxious, or on edge: 0 = Not at all Not being able to stop or control worryin = Not at all Worrying too much about different things: 0 = Not at all Trouble relaxin = Not at all Being so restless that it is hard to sit still: 0 = Not at all Becoming easily annoyed or irritable: 0 = Not at all Feeling afraid as if something awful might happen: 0 = Not at all Total RADHA-7 score (0-4 normal; 5-9 mild; 10-14 moderate; 15-21 severe): 0 Source: Developed by Drs. Ashish Jimenez, Ada Hawthorne, Hernando Alexandre and colleagues, with an educational delisa from [email or web address]. Review of Systems Const Denies body aches, Denies chills, Denies fever(s), Denies headache(s) and Denies poor appetite Eyes Reports no additional complaints ENT Denies dysphagia, Denies dizziness, Denies headache(s) and Denies odynophagia Card Denies chest pain, Denies syncope, Denies edema, Denies irregular heart rhythm, Denies lightheadedness and Denies dyspnea Resp Denies cough and Denies dyspnea GI Denies abdominal pain, Denies constipation, Denies dysphagia, Denies diarrhea, Denies nausea, Denies odynophagia and Denies vomiting Reports no additional complaints Musc Details: mild pain in the left ankle Reports abnormal gait Skin/Breast Reports system reviewed and no additional complaints, except as documented Neuro Reports abnormal gait, Denies dizziness, Denies syncope and Denies headache(s) Psych Reports no additional complaints Physical exam (Primary Care) Vital Signs: Last Vital Signs Temp 97.1 F 01/14/25 08:53 Pulse 97 01/14/25 08:53 BP 136/84 01/14/25 08:53 Pulse Ox 98 01/14/25 08:53 Oxygen Delivery Method Room Air 01/14/25 08:53 Tobacco/Smoking Status: Tobacco use Status Tobacco use date assessed 01/14/25 01/14/25 08:57 Patient Tobacco Use Status Never used Tobacco 01/14/25 08:57 Tobacco use type Cigarette 01/14/25 08:57 e-Cigarette/Vaping Use Never Used 01/14/25 08:57 PHQ-9: PHQ-9 Score PHQ-9: Total score 0 01/14/25 09:00 Depression Screening Interpretation: Negative Thrive Assessment: Date of Thrive Assessment Date Thrive assessed 07/14/24 01/14/25 08:57 Currently or been in a relationship where the following occur: I choose not to answer Const General: cooperative, healthy appearing, comfortable and no acute distress Orientation/consciousness: patient oriented x3 HENMT Head: Yes normocephalic Ears: hearing grossly normal bilaterally, external ears normal, TM's normal bilaterally and Abnormal EAC present cerumen impaction bilateral General nose exam: Normal external nose present Face and sinus: Yes normal facial exam and Yes sinuses nontender Mouth: Normal oral and palatal mucosa present and tongue normal Throat: Yes posterior oropharynx normal Eyes General: appearance normal, both eyes and all related structures Conjunctivae: conjunctivae normal Pupils: Equal, round and reactive pupils present EOM: EOMs intact bilaterally and No Nystagmus present Neck Neck: Yes normal visual inspection, Yes full ROM and Yes no lymphadenopathy Chest Chest palpation & inspection: normal inspection of the chest Resp Effort & Inspection: normal respiratory effort Auscultation: clear to auscultation bilaterally, no crackles, no rales, no rhonchi, no wheezes and breath sounds present Cardio Rate: regular rate Rhythm: regular rhythm Peripheral pulses: radial pulses present and dorsalis pedis present GI Inspection: Yes normal to inspection and No Abdominal wall edema Palpation (GI): Soft to palpation, not firm and nontender Auscultation: normal bowel sounds Rectal Exam - Male: Yes deferred General: Yes no CVA tenderness Back/Spine/Pelvis Back: no CVA tenderness Skin General skin exam: no rashes or lesions noted Neuro General: patient oriented x3 Cranial nerves: Yes Equal, round and reactive pupils present, Yes Midline tongue present, Yes Ability to bilaterally elevate shoulders present and No Nystagmus present Gait exam (Neuro): Normal gait present Extrem General: Yes normal to inspection, Yes full ROM, No no pedal edema and No edema Psych Speech and movement: Normal speech and movement present Affect: normal affect Insight: Good insight present (Psych) Judgement: Good judgement present (Psych) Office Procedures Cerumen Removal From which ear canal was the cerumen removed: bilateral Removal: cerumen loop/spoon Notes: patient tolerated procedure well, no complications and ear canal clear [id number] Wax Removal by Spoon/Curette Immunizations pneumoc 20-trish conj-dip cr(PF) 0.5 mL IM syringe Performing Provider: Sandra Walsh PA-C [facility] Administered by: MARCIA Alvarez on 01/14/25 09:37 Dose Route Admin Location Dispensed Lot Number Expiration Date [facility] Cigarette Making Machine Hopper Feeder 0.5 mL IM Left Deltoid 0.5 mL [id number] 11/03/25 WYETH/PFIZER Total Dispensed Waste 0.5 mL 0 % VIS Given Date VIS Provided VIS Publication Date 01/14/25 Single Vaccine 24 Eligibility Eligibility Date Funding Source Not [facility] Eligible 01/14/25 Private Coding Level of Care Code Est Pt Prev Care 40-64y([id number]) Diagnoses Physical exam Z00.00 Primary hypertension I10 Hypertension type: primary hypertension Hypercholesterolemia E78.00 Elevated fasting glucose R73.01 Morbid obesity E66.01 Sprain of right ankle, unspecified ligament, initial encounter S93.401A Encounter type: initial encounter Involved ligament of ankle: unspecified ligament Cerumen impaction H61.20 CPT Codes Office Procedure - CPT: 75256-Jat Wax Removal by Spoon/Curette ([id number]) Assessment & Plan Assessment & Plan (1) Physical exam: Code(s): Z00.00 - Encounter for general adult medical examination without abnormal findings Category: Medical Plan: Patient is overdue for colorectal cancer screening and referral was placed today for cologuard box. He is due for blood work and reminded to have this done. PCV will be due at age 50 and this was given in the office today. Healthy diet and regular exercise is encouraged. Plan to follow up in 6 months or sooner as needed or pending blood work evaluation. (2) Hypertension: Code(s): I10 - Essential (primary) hypertension Category: Medical Qualifiers: Hypertension type: primary hypertension Qualified Code(s): I10 - Essential (primary) hypertension Plan: Continue on current blood pressure medication. Avoid salt intake and encourage healthy diet and regular exercise. (3) Hypercholesterolemia: Code(s): E78.00 - Pure hypercholesterolemia, unspecified Category: Medical Plan: Avoid foods that are high in cholesterol such as red meat, fried foods, eggs and baked goods. Triglyceride goal of less than 150 and LDL goal of less than 130. Not currently on medical management. (4) Elevated fasting glucose: Code(s): R73.01 - Impaired fasting glucose Category: Medical Plan: Decrease the amount of carbohydrates such as pasta, bread, rice, and potatoes and limit the amount of sweets. Although fruits are generally healthy they should be eaten in moderation as they are still high in sugar. (5) Morbid obesity: Code(s): E66.01 - Morbid (severe) obesity due to excess calories Category: Medical Plan: Healthy diet and regular exercise is encouraged. (6) Right ankle sprain: Code(s): S93.401A - Sprain of unspecified ligament of right ankle, initial encounter Category: Medical Qualifiers: Encounter type: initial encounter Involved ligament of ankle: unspecified ligament Qualified Code(s): S93.401A - Sprain of unspecified ligament of right ankle, initial encounter Plan: Continue to follow with recommendations from podiatry. Doing well today. (7) Cerumen impaction: Code(s): H61.20 - Impacted cerumen, unspecified ear Category: Medical Plan: Cleared today using lighted curette. Canal and TM are atraumatic and follow up prn for this concern. Plan This note was constructed using voice recognition software. While every effort has been made to ensure accuracy and janitorial services supervisor, still areas may have been included sometimes these areas may affect the content or meeting of the given symptoms. Total time spent caring for the patient today was 30 minutes. This includes time spent before the visit reviewing the chart, time spent during the visit, and time spent after the visit and documentation. Patient was informed and verbally consented to the use of an ambient scribe for clinic note documentation during this visit. Orders: Orders Vitamin D 25-OH Total Today Z13.21 - Encounter for screening for nutritional disorder Lipid Panel Today E78.00 - Pure hypercholesterolemia, unspecified Complete Blood Count Auto Diff Today Z13.0 - Encounter for screening for diseases of the blood and blood-forming organs and certain disorders involving the immune mechanism PSA, Ultra Sensitive Today Z12.5 - Encounter for screening for malignant neoplasm of prostate Hemoglobin A1c Today E11.65 - Type 2 diabetes mellitus with hyperglycemia TSH reflex Free T4 Today Z13.29 - Encounter for screening for other suspected endocrine disorder Vitamin B12 and Folate Today Z13.21 - Encounter for screening for nutritional disorder Pneumococcal 20 Immunization Today Z23 - Encounter for immunization Referrals Cologuard Test Z12.11 - Encounter for screening for malignant neoplasm of colon, Z12.12 - Encounter for screening for malignant neoplasm of rectum
== END 2025-01-14 09:39 | disposition home or self-care (01) ==
LOC: HO.HMCH 08:37
DX: Z00.00 Encounter for general adult medical examination without abnormal findings (principal); I10 Essential (primary) hypertension; E66.01 Morbid (severe) obesity due to excess calories; E78.00 Pure hypercholesterolemia, unspecified; R73.01 Impaired fasting glucose; H61.23 Impacted cerumen, bilateral; S93.401A Sprain of unspecified ligament of right ankle, initial encounter; Z23 Encounter for immunization

== ENCOUNTER → 2025-01-14 08:37 | Outpatient (BNVA) | payer OTHER, SELFPAY | DX: Z00.00 Encounter for general adult medical examination without abnormal findings (principal); I10 Essential (primary) hypertension; E78.00 Pure hypercholesterolemia, unspecified; R73.01 Impaired fasting glucose; E66.01 Morbid (severe) obesity due to excess calories; H61.20 Impacted cerumen, unspecified ear; S93.401D Sprain of unspecified ligament of right ankle, subsequent encounter; X58.XXXD Exposure to other specified factors, subsequent encounter; Z23 Encounter for immunization | CPT/HCPCS: 69210; 90471; 90677; 99396 ==

== ENCOUNTER 2025-02-02 09:54 | Outpatient (AMB) | payer OTHER, SELFPAY ==
[2025-02-02 10:08] VITALS: BMI 44.6
--- NOTE | 2025-02-02 10:08 | MHC.OFFVIS ---
Vital Signs 02/02/25 10:08 Height 5 ft 4 in Weight 260 lb BMI 44.6 Intake Visit Reasons: right ankle/foot sprain & avulsion fx Intake Note: Adam is a 49 year old male who presents today for a follow up on his fracture of the 5th toe. At his last visit he was provided with a cam boot and a stockinet, cast padding, and Lane bandage to the RLE was applied. He was advised to follow the RICE protocol, take ibuprofen or tylenol PRN for pain. Patient reports he is no longer experiencing pain and he has no further questions or concerns at this time Allergies No Known Allergies Allergy (Verified 02/02/25 10:09) HPI Comments Details: The patient is a 49 year old individual presenting for a follow-up visit for a a right 5th met avulsion fracture and medial malleolar avulsion fracture. The patient has been using the cam boot and has been weight-bearing as tolerated in the boot. Patient states he does not feel any pain in denies any new pedal injuries. He was accompanied by his mother. [facility] Medical History Right ankle sprain Nondisplaced fracture of medial malleolus of right tibia, initial encounter for closed fracture Nondisplaced fracture of fifth metatarsal bone, right foot, initial encounter for closed fracture Arthritis of right foot Arthritis of ankle, right, degenerative Right ankle pain Right foot pain Right foot injury Right ankle injury Diabetes mellitus Morbid obesity Surgical History History of ankle surgery Family History Mother Alive and well Endometrial cancer Father Coronary artery disease Social History Housing: House Alcohol intake: never Patient Tobacco Use Status: Never used Tobacco Tobacco use type: Cigarette e-Cigarette/Vaping Use: Never Used Second Hand Smoke Exposure: No service: No Current occupational status: disabled Cognitive needs: No Hearing needs: No Vision needs: Yes (Glasses) Review of Systems Const Details: - Musculoskeletal: Denies current pain in the right foot and ankle. All systems reviewed & are unremarkable except as noted in HPI and below Physical Exam Vital Signs: BMI result Body Mass Index 44.6 Extrem Other: Right lower extremity focused physical exam: Derm: No open lesions abrasions or wounds noted. No ecchymosis or discoloration noted. No erythema noted to the dorsal aspect of the l[place] due to previous cam boot tightness. No clinical signs of infection noted. Vascular: DP/PT pulses palpable. Capillary refill time less than 3 seconds. Temperature gradient warm to. Pedal hair present. No varicosities noted. Minimal edema noted. Neuro: Protective sensation is grossly intact. MSK: No pain on palpation along the ankle in the medial and lateral malleoli. No pain on palpation along the medial and lateral aspects of the foot. Range of motion of the forefoot, hindfoot and ankle within normal limits. No crepitus noted. MMT 5/5. No fluctuance noted. Non antalgic gait noted. Results Reviewed Results Reviewed: Podiatry read of right foot x-ray (01/04/2025): Avulsion fracture noted to the base of the 5th metatarsal. Osteophytic changes noted to the midfoot. Bone spurs noted to the plantar and posterior aspect of the calcaneus. Mild calcification of a vessel noted along course of Achilles tendon. Kager's triangle intact. Right foot x-ray (01/04/2025): Findings: Small chronic ossific bodies adjacent to the medial malleolus and in the region of the achilles tendon insertion. No acute fracture. Soft tissue edema noted. No significant loss of joint space, osteophytes, or erosions. No ankle effusion. No radiopaque foreign body. IMPRESSION: No acute bony injury. Podiatry read of right ankle x-ray (01/04/2025): Avulsion fractures noted to the distal tip of the medial malleolus. Mild joint space narrowing noted to the ankle. Osteophytic changes noted to the right ankle. No acute dislocations noted. Right ankle x-ray (01/04/2025): Findings: There are multiple chronic ossific bodies adjacent to the medial malleolus. Similar ossific bodies adjacent to the posterior malleolus and in the region of the Achilles tendon insertion. No gross evidence of acute displaced fracture. Mild relative widening of the lateral ankle mortise is noted. Mild arthritic change. No ankle effusion. No radiopaque foreign body. IMPRESSION: 1. No acute displaced fracture. 2. Multiple chronic appearing bone fragments within the ankle as described. 3. Mild relative widening of the lateral ankle mortise. Assessment & Plan Assessment & Plan (1) Right ankle injury: Code(s): S99.911A - Unspecified injury of right ankle, initial encounter Category: Medical Qualifiers: Encounter type: initial encounter Qualified Code(s): S99.911A - Unspecified injury of right ankle, initial encounter (2) Right foot injury: Code(s): S99.921A - Unspecified injury of right foot, initial encounter Category: Medical Qualifiers: Encounter type: initial encounter Qualified Code(s): S99.921A - Unspecified injury of right foot, initial encounter (3) Right foot pain: Code(s): M79.671 - Pain in right foot Category: Medical (4) Right ankle pain: Code(s): M25.571 - Pain in right ankle and joints of right foot Category: Medical Qualifiers: Chronicity: acute Qualified Code(s): M25.571 - Pain in right ankle and joints of right foot (5) Arthritis of ankle, right, degenerative: Code(s): M19.071 - Primary osteoarthritis, right ankle and foot Category: Medical Qualifiers: Osteoarthritis type: post-traumatic Qualified Code(s): M19.171 - Post-traumatic osteoarthritis, right ankle and foot (6) Arthritis of right foot: Code(s): M19.071 - Primary osteoarthritis, right ankle and foot Category: Medical (7) Nondisplaced fracture of fifth metatarsal bone, right foot, initial encounter for closed fracture: Code(s): S92.354A - Nondisplaced fracture of fifth metatarsal bone, right foot, initial encounter for closed fracture Category: Medical (8) Nondisplaced fracture of medial malleolus of right tibia, initial encounter for closed fracture: Code(s): S82.54XA - Nondisplaced fracture of medial malleolus of right tibia, initial encounter for closed fracture Category: Medical (9) Right ankle sprain: Code(s): S93.401A - Sprain of unspecified ligament of right ankle, initial encounter Category: Medical Qualifiers: Encounter type: initial encounter Involved ligament of ankle: unspecified ligament Qualified Code(s): S93.401A - Sprain of unspecified ligament of right ankle, initial encounter Plan Patient was informed and verbally consented to the use of an ambient scribe for clinic note documentation during this visit. I informed the patient of the excellent progress and that the boot and wrap are no longer necessary. I cleared the patient to resume activities such as driving, walking, and using stairs. We discussed footwear, and I advised wearing supportive, lace-up sneakers for the next two weeks before considering slip-on shoes, emphasizing the need for support. I advised the patient to keep the boot and use it if pain returns. I informed the patient that no future appointments are scheduled and to follow up on an as-needed basis. - The patient is cleared to discontinue the use of the CAMboot and wrap. - The patient may resume driving and walking up and down stairs. - Patient may be WBAT to the E. - The patient is advised to wear supportive, tie-on shoes for the next two weeks before transitioning to slip-on sneakers. - The patient should keep the boot and can use it as needed if pain recurs. - Patient should avoid barefoot walking. RTC prn. 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
== END 2025-02-02 10:20 | disposition home or self-care (01) ==
LOC: HO.HPODS 09:55
PROVIDERS: Visit Provider Student in an Organized Health Care Education/Training Program
DX: S99.911A Unspecified injury of right ankle, initial encounter (principal); S99.921A Unspecified injury of right foot, initial encounter; M79.671 Pain in right foot; M25.571 Pain in right ankle and joints of right foot; M19.171 Post-traumatic osteoarthritis, right ankle and foot; M19.071 Primary osteoarthritis, right ankle and foot; S92.354A Nondisplaced fracture of fifth metatarsal bone, right foot, initial encounter for closed fracture; S82.54XA Nondisplaced fracture of medial malleolus of right tibia, initial encounter for closed fracture; S93.401A Sprain of unspecified ligament of right ankle, initial encounter
CPT/HCPCS: 99213

== ENCOUNTER → 2025-02-02 09:54 | Outpatient (BNVA) | payer OTHER, SELFPAY | PROVIDERS: Visit Provider Student in an Organized Health Care Education/Training Program | DX: S92.354A Nondisplaced fracture of fifth metatarsal bone, right foot, initial encounter for closed fracture (principal); S82.54XA Nondisplaced fracture of medial malleolus of right tibia, initial encounter for closed fracture; S93.401A Sprain of unspecified ligament of right ankle, initial encounter; M19.071 Primary osteoarthritis, right ankle and foot; M19.171 Post-traumatic osteoarthritis, right ankle and foot; X58.XXXA Exposure to other specified factors, initial encounter; Y93.9 Activity, unspecified; Y92.9 Unspecified place or not applicable; Y99.9 Unspecified external cause status | CPT/HCPCS: 99212 ==